=== PATIENT | female | born 1980 | race Caucasian/White ===

== ENCOUNTER 2020-03-23 08:50 | Emergency (ER) | payer OTHER, SELFPAY ==
[2020-03-23 08:53] VITALS: BP 132/84; PULSE 80; RESP 20; TEMP 36.3; O2SAT 97
--- NOTE | 2020-03-23 09:17 | ED.SKABFB ---
HPI - Skin/Abscess/Foreign Bdy General Chief complaint: Skin/Abscess/Foreign Body Stated complaint: infected burn sites? Time Seen by Provider: 03/23/20 09:17 Source: patient Mode of arrival: ambulatory Limitations: no limitations History of Present Illness HPI narrative: Patient is a 39-year-old female who presents for evaluation of abdominal wall june. Patient states that she burned the top of her abdominal wall skin tea spilled top Ramen onto it. This happened over 5 days ago. Patient reports that she initially had some blistering which is now resolved. Patient reports pain which is burning in nature overlying the lesions, she reports she thought she had some green discharge over 1 of the lesions yesterday. She has been applying Silvadene, and her primary care physician's office recently started her on Bactrim and azithromycin. Patient denies fever, chills, streaking erythema or linear pattern to the rash. No history of skin infection. Related Data Allergies Allergy/AdvReac Type Severity Reaction Status Date / Time metronidazole Allergy Severe Nausea and Verified 03/23/20 08:56 Vomiting prochlorperazine Allergy Severe Nervousness Verified 03/23/20 08:56 cephalexin Allergy Intermediate Rash Verified 03/23/20 08:56 [email or web address] Allergy Unknown Hallucinate Verified 03/23/20 08:56 Review of Systems Review of Systems: Narrative: CONSTITUTIONAL: Denies fever CARDIOVASCULAR: Denies chest pain RESPIRATORY: Denies cough or dyspnea. GASTROINTESTINAL: Denies abdominal pain SKIN: Burn lesions to abdomen MUSCULOSKELETAL: Denies back pain NEUROLOGIC: Denies headache PMFSH Past Medical History Medical History (Updated 03/23/20 @ 09:56 by Varsha Leiva MD) Anxiety Anxiety and depression Herpes labialis without complication Splenomegaly Social History Social History Smoking status: Current every day smoker Alcohol intake: current Substance use: never Substance use type: does not use Gender identity (if verbalized by the patient): Female Exam Narrative: Exam Narrative: GENERAL: Awake, alert, conversant HEAD: Normocephalic, atraumatic. EYES: PERRLA and EOMI. ENT: Nares clear, no rhinorrhea or epistaxis. Mucous membranes moist. NECK: Supple. CHEST: No respiratory distress, breathing even and non labored HEART: Regular rate, sinus rhythm ABDOMEN:Non distended, minimally tender over areas of healing burn, no streaking erythema, no warmth, no purulent discharge, no wound dehiscence. No eschar present. No malodorous discharge. Total body surface area less than 1% about a safest area june. Scattered burn lesions to the anterior abdomen, none are greater than 3 cm. EXTREMITIES: Normal range of motion. No edema. SKIN: Warm, dry, no rash. NEURO:No focal deficits. Alert and oriented x3 Course Vital Signs Vital signs: Vital Signs Temperature 36.3 C L 03/23/20 08:53 Pulse Rate 80 03/23/20 08:53 Respiratory Rate 20 03/23/20 08:53 Blood Pressure 132/84 03/23/20 08:53 Pulse Oximetry 97 03/23/20 08:53 Temperature 36.3 C L 03/23/20 08:53 Pulse Rate 80 03/23/20 08:53 Respiratory Rate 20 03/23/20 08:53 Blood Pressure 132/84 03/23/20 08:53 Pulse Oximetry 97 03/23/20 08:53 MDM - Skin/Abscess/Foreign Bdy MDM Narrative Medical decision making narrative: On exam, patient has mostly well-healing granulation tissue, there is some slight erythema at the borders of the burn markings on the abdomen. No streaking erythema, severe warmth or fluctuance. No evidence of abscess. No vesicles. Patient has been on Bactrim without much improvement, we can go ahead and discontinue that and expand to clindamycin. Clinically, I do not feel there is findings concerning for cellulitis that is severe at this point. No systemic symptoms of infectious process. Also, I feel a large portion of this is due to pain control for the patient, will try short-t
[2020-03-23 10:22] VITALS: BP 123/79; PULSE 58; RESP 20; O2SAT 99
== END 2020-03-23 10:24 | disposition home or self-care (01) ==
PROVIDERS: Emergency Provider Emergency Medicine; PCP Family Medicine
DX: T21.02XA Burn of unspecified degree of abdominal wall, initial encounter (principal); X10.1XXA Contact with hot food, initial encounter; F17.200 Nicotine dependence, unspecified, uncomplicated; T31.0 Burns involving less than 10% of body surface
CPT/HCPCS: 99283

== ENCOUNTER 2020-04-20 07:59 | Emergency (ER) | payer OTHER, SELFPAY ==
--- NOTE | ~2020-04-20 | XR_ITS ---
EXAMINATION: XR abdomen/kub 1V DATE: 04/20/2020 09:55 INDICATION: Right flank pain. Vomiting. TECHNIQUE: A supine view of the abdomen on 2 radiographs was obtained. COMPARISON: CT abdomen and pelvis 04/20/2020 FINDINGS: There are no dilated loops of bowel. There are phleboliths in the pelvis. Surgical clips in the right upper quadrant are likely from cholecystectomy. IMPRESSION: 1. No urolithiasis. Reviewed, dictated and finalized at location A. IMPRESSION: 1. No urolithiasis.
--- NOTE | ~2020-04-20 | CT_ITS ---
EXAMINATION: CT abdomen pelvis wo con DATE: 04/20/2020 09:48 INDICATION: Right flank pain. Vomiting. TECHNIQUE: Computed tomography (CT) of the abdomen and pelvis was performed without intravenous contr ast. Automated exposure control and iterative reconstruction technique were employed. The dose-length product was 1318.69 mGy-cm. COMPARISON: CT abdomen and pelvis 07/10/2018 FINDINGS: The visualized portions of the lung bases demonstrate mild atelectasis. No pleural effusion . The heart size is normal. No pericardial effusion. There is a small sliding hiatal hernia. The live r and spleen are normal. There are changes of cholecystectomy. The pancreas, adrenal glands, and kidn eys are normal. There is no urolithiasis. There are no dilated loops of bowel. The appendix is not vi sualized. There are no pathologically enlarged lymph nodes. There is no free intraperitoneal fluid. T here is mild thoracal lumbar spondylosis. IMPRESSION: 1. Small sliding hiatal hernia. Reviewed, dictated and finalized at location A.
[2020-04-20 08:08] VITALS: BP 149/107; PULSE 77; RESP 20; TEMP 36.1; O2SAT 99
[2020-04-20] MEDS: SODIUM CHLORIDE 0.9% IV 1,000 ML 999 ML IV CONT (08:30)
[2020-04-20] MEDS: ONDANSETRON INJ 4 MG/2 ML VIAL IV PUSH (08:32)
--- NOTE | 2020-04-20 08:38 | ED.BACK ---
HPI - Back Pain/Injury General Chief Complaint: Urogenital-Female Stated Complaint: vomiting, back pain Time Seen by Provider: 04/20/20 08:06 Source: patient Mode of arrival: ambulatory Limitations: no limitations History of Present Illness HPI Narrative: This patient is a 39 year old female with history of kidney stones who presents for evaluation of right flank pain. Patient developed sudden onset right flank pain this morning at 3 am. Her pain is radiating around to her right lower abdomen. She also has associated nausea and vomiting. She denies fever or chills. MD elicited complaint: back pain Pertinent past history: kidney stones Related Data Allergies Allergy/AdvReac Type Severity Reaction Status Date / Time metronidazole Allergy Severe Nausea and Verified 04/08/20 14:46 Vomiting prochlorperazine Allergy Severe Nervousness Verified 04/08/20 14:46 cephalexin Allergy Intermediate Rash Verified 04/08/20 14:46 [email or web address] Allergy Unknown Hallucinate Verified 04/08/20 14:46 Review of Systems Review of Systems: All systems reviewed & are unremarkable except as noted in HPI and below Constitutional: Constitutional: Denies chills and Denies fever(s) Gastrointestinal: Gastrointestinal: Reports abdominal pain, Reports nausea and Reports vomiting Musculoskeletal: Musculoskeletal: Reports back pain PMF Past Medical History Medical History (Updated 04/20/20 @ 12:27 by Rina Grace MD) Anxiety Anxiety and depression Herpes labialis without complication Splenomegaly Surgical History Surgical History (Updated 04/20/20 @ 08:40 by Rina Grace MD) Hx of appendectomy Social History Social History Smoking status: Current every day smoker Alcohol intake: current Substance use: never Substance use type: does not use Gender identity (if verbalized by the patient): Female Exam Const: General: alert Nutritional Appearance: obese Orientation/consciousness: patient oriented x3 Other: mild distress Eyes: Pupils: Equal, round and reactive pupils present EOM: EOMs intact bilaterally Neck: Neck: no lymphadenopathy Resp: Effort & Inspection: normal respiratory effort and no retractions Auscultation: clear to auscultation bilaterally Cardio: Rate: regular rate Rhythm: regular rhythm Heart sounds: no murmurs GI: GI Palp: Yes Soft to palpation, No Firmness to palpation present (GI), No Tenderness to palpation present (GI), No Guarding due to palpation present (GI), No Rigid due to palpation and No No hepatosplenomegaly present : General: Yes no CVA tenderness Neuro: General: patient oriented x3, moves all extremities and CN's II-XI intact bilaterally Psych: Mental Status: mental status grossly normal Course Reevaluation(s) Reevaluation #1: Patient reports pain has improved and she is ready for discharge home. Date: 04/20/20 Time: 12:24 Vital Signs Vital signs: Vital Signs Temperature 97.0 F L 04/20/20 08:08 Pulse Rate 77 04/20/20 08:08 Respiratory Rate 20 04/20/20 08:08 Blood Pressure 149/107 H 04/20/20 08:08 Pulse Oximetry 99 04/20/20 08:08 Temperature 97.0 F L 04/20/20 08:08 Pulse Rate 94 04/20/20 12:36 Respiratory Rate 17 04/20/20 12:36 Blood Pressure 132/82 04/20/20 12:36 Pulse Oximetry 97 04/20/20 12:36 MDM - Back Pain/Injury Lab Data Attestation: I reviewed the patient's lab results. Result diagrams: 04/20/20 08:27 04/20/20 08:27 Labs: Lab Results 04/20/20 04/20/20 04/20/20 Range/Units 08:26 08:27 08:27 WBC 5.3 (4.5-10.0) K/mm3 RBC 4.45 (4.2-5.4) M/mm3 Hgb 13.2 (12.0-15.0) g/dL Hct 39.3 (37.0-47.0) % MCV 88.3 (80-100) fl MCH 29.7 (26-34) pg MCHC 33.6 (32-36) g/dl RDW 13.0 (11.5-14.5) % Plt Count 288 (150-375) k/mm3 MPV 10.1 (7.4-10.4) fl Immature Gran % (Auto) 0.4 (0-0.5) % Neut %
[2020-04-20 08:47] LABS: Basophils Percent Auto 0.6 % (0.2-1.2); Eosinophils Absolute Auto 0.2 K/mm3 (0-0.3); Eosinophils Percent Auto 3.9 % (0-4.4); Hematocrit 39.3 % (37.0-47.0); Hemoglobin 13.2 g/dL (12.0-15.0); Immature Granulocyte Absolute 0.02 K/mm3 (0.00-0.031); Immature Granulocyte Percent A 0.4 % (0-0.5); Lymphocytes Absolute Auto 1.64 K/mm3 (0.9-3.2); Lymphocytes Percent Auto 30.8 % (18.3-44.2); Mean Corpuscular HGB Conc 33.6 g/dl (32-36); Mean Corpuscular Hemoglobin 29.7 pg (26-34); Mean Corpuscular Volume 88.3 fl (80-100); Mean Platelet Volume 10.1 fl (7.4-10.4); Monocytes Absolute Auto 0.2 K/mm3 (0.1-0.6); Monocytes Percent Auto 4.3 % (2.6-8.5); Neutrophils Absolute Auto 3.2 K/mm3 (1.3-6.7); Platelet Count Result 288 k/mm3 (150-375); Red Blood Count 4.45 M/mm3 (4.2-5.4); White Blood Count 5.3 K/mm3 (4.5-10.0)
[2020-04-20 08:51] LABS: Add Urine Microscopic? YES; Appearance Urine Clear (Clear); Bacteria Urine Trace /hpf; Bilirubin Urine Negative (Negative); Blood Urine 1+ (Negative); Color Urine Straw (Yellow); Glucose Urine UA Negative (Negative); Ketones Urine Negative (Negative); Leukocyte Esterase Ur 1+ LEU/UL (Negative); Mucus Urine Rare /lpf; Nitrate Urine Negative (Negative); Protein Urine Negative (Negative); Specific Grav Ur 1.014 (1.001-1.035); Squamous Epithelial Cell Urine Many /hpf (Few); Urobilinogen Urine Negative mg/dL (<2.0)
[2020-04-20 08:59] LABS: Alanine Aminotransferase 22 U/L (4-35); Albumin Level 4.2 g/dL (3.5-5.1); Alkaline Phosphatase 60 U/L (38-126); Anion Gap 9 mmol/L (8-16); Aspartate Amino Transferase 35 U/L (14-36); Bilirubin,Total 0.2 mg/dL (0.2-1.3); Blood Urea Nitrogen 14 mg/dL (7-17); Calcium 8.6 mg/dL (8.4-10.2); Carbon Dioxide 24 mmol/L (22-30); Chloride 105 mmol/L (98-107); Estimated CRCL calculation 114 ml/min; Estimated Glomerular Filt Rate > 60; Glucose 94 mg/dL (65-105); Potassium 4.7 mmol/L (3.4-5.0); Sodium 138 mmol/L (137-145)
[2020-04-20] MEDS: KETOROLAC 30 MG/ML VIAL (*BKC) IV PUSH (11:10)
[2020-04-20 11:14] VITALS: BP 102/70; PULSE 61; RESP 20; O2SAT 98
[2020-04-20 12:36] VITALS: BP 132/82; PULSE 94; RESP 17; O2SAT 97
== END 2020-04-20 12:39 | disposition home or self-care (01) ==
PROVIDERS: Emergency Provider General Practice; PCP Family Medicine
DX: N39.0 Urinary tract infection, site not specified (principal); F17.200 Nicotine dependence, unspecified, uncomplicated; K44.9 Diaphragmatic hernia without obstruction or gangrene; F41.9 Anxiety disorder, unspecified; F32.9 Major depressive disorder, single episode, unspecified
CPT/HCPCS: 36415; 74018; 74176; 80053; 81001; 85025; 87086; 96361; 96365; 96375; 99284; J0131; J1885; J2405; J7030

== ENCOUNTER 2020-04-28 17:16 | Emergency (ER) | payer OTHER, SELFPAY ==
[2020-04-28 17:18] VITALS: BP 157/94; PULSE 112; RESP 22; TEMP 37.1; O2SAT 100
--- NOTE | 2020-04-28 17:38 | ED.GENADULT ---
HPI - General Adult General Chief complaint: Neuro Symptoms/Deficit Stated complaint: my hands and feet are purple , shaking Time Seen by Provider: 04/28/20 17:32 Source: patient History of Present Illness HPI narrative: Patient is a 39 y/o female complaining of hand turning purple approximately 30-45 minutes. She states that the hand discoloration happened when she was trying to braid her hair. She believes that raising her hands may have aggravated her discoloration. She states that her hands are shaking. She denies any pain. She is able to move her arms without difficulty. She also states that her feet are turning purple. Related Data Allergies Allergy/AdvReac Type Severity Reaction Status Date / Time metronidazole Allergy Severe Nausea and Verified 04/28/20 17:21 Vomiting prochlorperazine Allergy Severe Nervousness Verified 04/28/20 17:21 cephalexin Allergy Intermediate Rash Verified 04/28/20 17:21 [email or web address] Allergy Unknown Hallucinate Verified 04/28/20 17:21 Review of Systems Constitutional: Constitutional: Denies chills, Denies fever(s), Denies headache(s) and Denies weakness Eyes: Eyes: Denies blurry vision ENT: Denies headache(s) and Denies neck pain Cardiovascular: Cardiovascular: Denies chest pain and Denies dyspnea Respiratory: Respiratory: Denies cough and Denies dyspnea Gastrointestinal: Gastrointestinal: Denies abdominal pain, Denies diarrhea, Denies nausea and Denies vomiting Genitourinary: Genitourinary: Denies hematuria and Denies dysuria Musculoskeletal: Musculoskeletal: Denies back pain and Denies neck pain Integumentary/Breasts: Skin/Breast: Reports other (skin discoloration) Neurologic: Denies headache(s) and Denies weakness PMFSH Past Medical History Medical History Anxiety Anxiety and depression Herpes labialis without complication Splenomegaly Surgical History Surgical History History of History of hemorrhoidectomy History of laparoscopic cholecystectomy History of renal stent History of tonsillectomy Hx of appendectomy Family History Family History Father Hypertension Grandparent Cerebrovascular accident Family history of pancreatic cancer Diabetes mellitus Family history of pancreatic disease Unknown Diabetes mellitus Social History Social History Smoking status: Current every day smoker Alcohol intake: current Substance use: never Substance use type: does not use Gender identity (if verbalized by the patient): Female Exam Const: General: no acute distress and well developed Orientation/consciousness: oriented to person, oriented to place, oriented to time and patient oriented x3 HENMT: Head: normocephalic Ears: external ears normal General nose exam: Normal external nose present Eyes: General: appearance normal, both eyes and all related structures Conjunctivae: conjunctivae normal Neck: Neck: normal visual inspection and full ROM Chest: Chest palpation & inspection: normal inspection of the chest and no tenderness Resp: Effort & Inspection: normal respiratory effort Auscultation: clear to auscultation bilaterally Cardio: Rate: tachycardic Rhythm: regular rhythm Peripheral pulses: Peripheral pulses 2+ throughout, radial pulses present and dorsalis pedis present GI: GI Palp: No abdominal tenderness and Yes Soft to palpation Skin: General skin exam: normal color and turgor normal Other: no purple discoloration of hands or feet Neuro: General: oriented to person, oriented to place, oriented to time and patient oriented x3 Cognition (Neuro): normal cognition Extrem: General: normal to inspection, full ROM and no pedal edema Psych: Appearance: grossly normal Mental Status: mental status grossly normal Affect: Anxious affe
--- NOTE | 2020-04-28 17:45 | ECG_ITS ---
Measurements Intervals [place] Rate: 83 P: 36 MN: 169 QRS: 1 QRSD: 86 T: 23 QT: 391 QTc: 461 Interpretive Statements SINUS RHYTHM BASELINE ARTIFACT- I, II, AVR, V1-V2 NORMAL ECG Electronically Signed On 04-29-2020 6:57:53 CDT by Mane Thomas D.O.
[2020-04-28 17:56] LABS: Basophils Percent Auto 0.3 % (0.2-1.2); Eosinophils Absolute Auto 0.1 K/mm3 (0-0.3); Eosinophils Percent Auto 0.6 % (0-4.4); Hemoglobin 14.3 g/dL (12.0-15.0); Immature Granulocyte Absolute 0.03 K/mm3 (0.00-0.031); Immature Granulocyte Percent A 0.3 % (0-0.5); Lymphocytes Absolute Auto 2.48 K/mm3 (0.9-3.2); Lymphocytes Percent Auto 28.8 % (18.3-44.2); Mean Corpuscular HGB Conc 33.3 g/dl (32-36); Mean Corpuscular Hemoglobin 29.7 pg (26-34); Mean Corpuscular Volume 89.4 fl (80-100); Monocytes Absolute Auto 0.5 K/mm3 (0.1-0.6); Neutrophils Absolute Auto 5.5 K/mm3 (1.3-6.7); Platelet Count Result 312 k/mm3 (150-375); Red Blood Count 4.81 M/mm3 (4.2-5.4); Red Cell Distribution Width 13.2 % (11.5-14.5); White Blood Count 8.6 K/mm3 (4.5-10.0)
[2020-04-28 18:09] LABS: Alanine Aminotransferase 36 U/L (4-35); Albumin Level 5.1 g/dL (3.5-5.1); Alkaline Phosphatase 86 U/L (38-126); Anion Gap 10 mmol/L (8-16); Aspartate Amino Transferase 44 U/L (14-36); Bilirubin,Total 0.5 mg/dL (0.2-1.3); Blood Urea Nitrogen 21 mg/dL (7-17); CRP 0.7 mg/dL (<1.0); Calcium 9.5 mg/dL (8.4-10.2); Carbon Dioxide 28 mmol/L (22-30); Chloride 101 mmol/L (98-107); Estimated CRCL calculation 84 ml/min; Estimated Glomerular Filt Rate > 60; Glucose 104 mg/dL (65-105); Potassium 3.6 mmol/L (3.4-5.0); Sodium 139 mmol/L (137-145)
[2020-04-28 18:23] LABS: Add Urine Microscopic? YES; Appearance Urine Cloudy (Clear); Bacteria Urine Trace /hpf; Bilirubin Urine Negative (Negative); Blood Urine Negative (Negative); Color Urine Yellow (Yellow); Glucose Urine UA Negative (Negative); Ketones Urine Trace mg/dL (Negative); Leukocyte Esterase Ur 3+ LEU/UL (Negative); Mucus Urine Moderate /lpf; Nitrate Urine Negative (Negative); Protein Urine 1+ mg/dL (Negative); Renal Epithelial Cells Urine Rare /hpf (None Seen); Squamous Epithelial Cell Urine Many /hpf (Few); Urobilinogen Urine Negative mg/dL (<2.0); WBC Urine 21-30 /hpf
[2020-04-28 18:24] LABS: Specific Grav Ur 1.032 (1.001-1.035)
[2020-04-28 18:25] LABS: Erythrocyte Sedimentation Rate 12 mm/hr (0-20)
[2020-04-28 19:36] VITALS: BP 159/94; PULSE 89; RESP 20; O2SAT 99
[2020-04-28 20:13] VITALS: BP 159/94; PULSE 80; RESP 20; O2SAT 99
== END 2020-04-28 20:14 | disposition home or self-care (01) ==
PROVIDERS: Emergency Provider Emergency Medicine; PCP Family Medicine
DX: R23.8 Other skin changes (principal); R25.1 Tremor, unspecified; I10 Essential (primary) hypertension; F41.9 Anxiety disorder, unspecified; F32.9 Major depressive disorder, single episode, unspecified; R16.1 Splenomegaly, not elsewhere classified
CPT/HCPCS: 36415; 80053; 81001; 85025; 85652; 86140; 87077; 87086; 87088; 87186; 93005; 99283

== ENCOUNTER 2020-05-01 09:38 | Emergency (ER) | payer OTHER, SELFPAY ==
--- NOTE | ~2020-05-01 | US_ITS ---
EXAMINATION: US pelvic complete w TV DATE: 05/01/2020 13:38 INDICATION: Right lower abdominal pain TECHNIQUE: Multiple transabdominal and endovaginal sonographic images of the pelvis were obtained. COMPARISON: None. FINDINGS: The uterus and bilateral ovaries are not visualized and reportedly surgically absent. Bladder is norm al. No free fluid in the pelvis. No abnormal mass or fluid collections identified. IMPRESSION: 1. Unremarkable pelvic ultrasound post prior hysterectomy and oophorectomy. Reviewed, dictated and finalized at location A.
--- NOTE | 2020-05-01 10:50 | ED.ABDPAIN ---
HPI - Abdominal Pain General Chief Complaint: Abdominal Pain Stated Complaint: UTI, Right Flank Pain Time Seen by Provider: 05/01/20 10:06 Source: patient Mode of arrival: ambulatory Limitations: no limitations History of Present Illness HPI narrative: This patient is a 39 year old female who presents for evaluation of right lower abdominal pain. She reports she has been having intermittent right lower abdominal pain for 2 weeks. Last night her pain has become constant. She states she was evaluated in ER [address] with [address] scan. She was started on bactrim for possible UTI. She started she she was placed on antibiotics again 3 days ago. She reports she has to strain to urinate but she develop dysuria or hematuria. MD elicited complaint: abdominal pain Location: RLQ Related Data Allergies Allergy/AdvReac Type Severity Reaction Status Date / Time metronidazole Allergy Severe Nausea and Verified 05/01/20 11:06 Vomiting prochlorperazine Allergy Severe Nervousness Verified 05/01/20 11:06 cephalexin Allergy Intermediate Rash Verified 05/01/20 11:06 [email or web address] Allergy Unknown Hallucinate Verified 05/01/20 11:06 Review of Systems Review of Systems: All systems reviewed & are unremarkable except as noted in HPI and below Constitutional: Constitutional: Denies chills and Denies fever(s) PMFSH Social History Social History Smoking status: Current every day smoker Alcohol intake: current Substance use: never Substance use type: does not use Gender identity (if verbalized by the patient): Female Exam Narrative: Exam Narrative: GENERAL: Well-appearing, well-nourished, and in no acute distress. HEAD: Normocephalic, atraumatic EYES: PERRLA and EOMI, conjunctiva clear without discharge NECK: Supple, without lymphadenopathy or mass RESPIRATORY: No respiratory distress, Airway patent, Respirations non-labored, Clear to auscultation without rales, rhonchi or wheeze HEART: Regular rate and rhythm. No murmur heard. Normal peripheral pulses. ABDOMEN: Soft, TTP right lower abdomen with barely touching skin., nondistended, normal active bowel sounds. No masses. No rebound or guarding, No organomegaly. EXTREMITIES: No edema, normal strength with full range of motion. SKIN: Warm, dry, normal color without rash NEURO: Alert and oriented x3. CN 2-12 grossly intact. No focal deficits. PSYCH: Normal mood and affect. Course Consultations Consultation #1: I discussed case with Dr. Long and he recommended started elavil 25 mg bid for neuropathy pain. I reviewed labs and she is on medication that its contraindicated to start right now. She will follow up with PCP. She reports appendix is out and labs are normal so I do not believe ct needed. she was having pain with rubbing skin . Date: 05/01/20 Time: 15:39 Vital Signs Vital signs: Vital Signs Temperature 97.7 F 05/01/20 11:00 Pulse Rate 103 H 05/01/20 11:00 Respiratory Rate 18 05/01/20 11:00 Blood Pressure 149/108 H 05/01/20 11:00 Pulse Oximetry 100 05/01/20 11:00 Temperature 97.7 F 05/01/20 11:00 Pulse Rate 97 05/01/20 13:45 Respiratory Rate 18 05/01/20 13:45 Blood Pressure 136/96 H 05/01/20 13:45 Pulse Oximetry 100 05/01/20 13:45 MDM - Abdominal Pain Lab Data Attestation: I reviewed the patient's lab results. Result diagrams: 05/01/20 11:13 05/01/20 14:26 Labs: Lab Results 05/01/20 05/01/20 05/01/20 Range/Units 11:13 11:13 11:13 WBC 5.7 (4.5-10.0) K/mm3 RBC 4.12 L (4.2-5.4) M/mm3 Hgb 12.2 (12.0-15.0) g/dL Hct 37.3 (37.0-47.0) % MCV 90.5 (80-100) fl MCH 29.6 (26-34) pg MCHC 32.7 (32-36) g/dl RDW 13.2 (11.5-14.5) % Plt Count 254 (150-375) k/mm3 MPV 10.3 (7.4-10.4) fl Immature Gran % (Auto) 0.5 (0-0.5) % Neut % (Auto) 58.0 (45.5-73.1) % Lymph % (Auto) 32.8 (18.3-44
[2020-05-01] MEDS: ONDANSETRON INJ 4 MG/2 ML VIAL IV PUSH (10:57)
[2020-05-01 11:00] VITALS: BP 149/108; PULSE 103; RESP 18; TEMP 36.5; O2SAT 100
[2020-05-01 11:33] LABS: Basophils Percent Auto 0.4 % (0.2-1.2); Eosinophils Absolute Auto 0.2 K/mm3 (0-0.3); Eosinophils Percent Auto 2.8 % (0-4.4); Hematocrit 37.3 % (37.0-47.0); Hemoglobin 12.2 g/dL (12.0-15.0); Immature Granulocyte Absolute 0.03 K/mm3 (0.00-0.031); Immature Granulocyte Percent A 0.5 % (0-0.5); Lymphocytes Absolute Auto 1.86 K/mm3 (0.9-3.2); Lymphocytes Percent Auto 32.8 % (18.3-44.2); Mean Corpuscular HGB Conc 32.7 g/dl (32-36); Mean Corpuscular Hemoglobin 29.6 pg (26-34); Mean Corpuscular Volume 90.5 fl (80-100); Mean Platelet Volume 10.3 fl (7.4-10.4); Monocytes Absolute Auto 0.3 K/mm3 (0.1-0.6); Monocytes Percent Auto 5.5 % (2.6-8.5); Neutrophils Absolute Auto 3.3 K/mm3 (1.3-6.7); Platelet Count Result 254 k/mm3 (150-375); Red Blood Count 4.12 M/mm3 (4.2-5.4); Red Cell Distribution Width 13.2 % (11.5-14.5); White Blood Count 5.7 K/mm3 (4.5-10.0)
[2020-05-01 11:37] LABS: Add Urine Microscopic? YES; Appearance Urine Clear (Clear); Bilirubin Urine Negative (Negative); Blood Urine Negative (Negative); Color Urine Straw (Yellow); Glucose Urine UA Negative (Negative); Ketones Urine Negative (Negative); Leukocyte Esterase Ur Trace LEU/UL (Negative); Mucus Urine Rare /lpf; Nitrate Urine Negative (Negative); Protein Urine Negative (Negative); RBC Urine 0-2 /hpf (0-2); Squamous Epithelial Cell Urine Occasional /hpf (Few); Urobilinogen Urine Negative mg/dL (<2.0); WBC Urine 0-3 /hpf
[2020-05-01 11:45] LABS: Lactic Acid Reflex 1.4 mmol/L (0.7-2.1)
[2020-05-01] MEDS: NITROFURANTOIN MONOHYD MACROCR 100 MG CAP PO (11:49)
--- NOTE | 2020-05-01 12:15 | PC.NURSE ---
Pts lab work was rejected by lab. technical delivery manager tried to redraw with no luck. Lab was called to come and draw.
[2020-05-01] MEDS: KETOROLAC 30 MG/ML VIAL (*BKC) IV PUSH (13:15)
[2020-05-01 13:45] VITALS: BP 136/96; PULSE 97; RESP 18; O2SAT 100
[2020-05-01 14:50] LABS: Potassium 3.9 mmol/L (3.4-5.0)
[2020-05-01 14:56] LABS: Alanine Aminotransferase 24 U/L (4-35); Alkaline Phosphatase 63 U/L (38-126); Anion Gap 6 mmol/L (8-16); Aspartate Amino Transferase 29 U/L (14-36); Bilirubin,Total 0.4 mg/dL (0.2-1.3); Blood Urea Nitrogen 14 mg/dL (7-17); Calcium 8.8 mg/dL (8.4-10.2); Carbon Dioxide 27 mmol/L (22-30); Chloride 104 mmol/L (98-107); Estimated CRCL calculation 117 ml/min; Estimated Glomerular Filt Rate > 60; Glucose 87 mg/dL (65-105); Lipase 71 U/L (23-300); Sodium 137 mmol/L (137-145)
== END 2020-05-01 16:02 | disposition home or self-care (01) ==
PROVIDERS: Emergency Provider General Practice; PCP Family Medicine
DX: N39.0 Urinary tract infection, site not specified (principal); R10.31 Right lower quadrant pain; F17.210 Nicotine dependence, cigarettes, uncomplicated
CPT/HCPCS: 36415; 76830; 76856; 80053; 81001; 83605; 83690; 85025; 96374; 96375; 99284; A9270; J1170; J1885; J2405

== ENCOUNTER 2020-05-02 08:33 | Outpatient (CLI) | payer OTHER, SELFPAY ==
--- NOTE | ~2020-05-02 | XR_ITS ---
EXAMINATION: XR UGIAC w barium swallow DATE: 05/02/2020 09:21 INDICATION: Vomiting. Unspecified small hiatal hernia. TECHNIQUE: The patient drank thick barium, gas-producing crystals, and thin barium. Fluoroscopic spot radiographs of the hypopharynx, esophagus, stomach and proximal small bowel were obtained. Fluorosco py exposure time was 2.3 minutes. Total of 1212 images were recorded. COMPARISON: None. FINDINGS: The pharynx is symmetric and without evidence of mass lesion or mucosal irregularity. Prominent crico pharyngeus muscle. The esophagus is normal without mass or stricture. Esophageal motility is normal. Small sliding-type hiatal hernia with gastroesophageal junction approximately 3 cm above the level of the diaphragm. There are couple episodes of spontaneous gastroesophageal reflux of a moderate amount of contrast extending at least to the mid esophagus which was unable to be repeated with provocative maneuvers. The stomach and proximal small bowel are normal. There appeared to be a significant amoun t of residual ingested material within the lumen of the stomach although patient reported not having eaten for at least 10 hours prior. IMPRESSION: 1. Small sliding-type hiatal hernia with gastroesophageal reflux. 2. Prominent cricopharyngeus muscle. 3. Residual debris within the stomach at least 10 hours post most recent reported ingestion suggestiv e of gastroparesis. Reviewed, dictated and finalized at location A. IMPRESSION: 1. Small sliding-type hiatal hernia with gastroesophageal reflux. 2. Prominent cricopharyngeus muscle. 3. Residual debris within the stomach at least 10 hours post most recent report ed ingestion suggestive of gastroparesis.
[2020-05-02 10:14] LABS: Basophils Percent Auto 0.4 % (0.2-1.2); Eosinophils Absolute Auto 0.2 K/mm3 (0-0.3); Eosinophils Percent Auto 3.8 % (0-4.4); Hematocrit 36.6 % (37.0-47.0); Immature Granulocyte Absolute 0.01 K/mm3 (0.00-0.031); Immature Granulocyte Percent A 0.2 % (0-0.5); Lymphocytes Absolute Auto 2.01 K/mm3 (0.9-3.2); Lymphocytes Percent Auto 37.8 % (18.3-44.2); Mean Corpuscular HGB Conc 32.8 g/dl (32-36); Mean Corpuscular Hemoglobin 29.9 pg (26-34); Mean Platelet Volume 9.6 fl (7.4-10.4); Monocytes Absolute Auto 0.3 K/mm3 (0.1-0.6); Monocytes Percent Auto 5.1 % (2.6-8.5); Neutrophils Absolute Auto 2.8 K/mm3 (1.3-6.7); Neutrophils Percent Auto 52.7 % (45.5-73.1); Platelet Count Result 230 k/mm3 (150-375); Red Blood Count 4.02 M/mm3 (4.2-5.4); Red Cell Distribution Width 13.2 % (11.5-14.5); White Blood Count 5.3 K/mm3 (4.5-10.0)
[2020-05-02 10:27] LABS: Alanine Aminotransferase 21 U/L (4-35); Albumin Level 4.1 g/dL (3.5-5.1); Alkaline Phosphatase 65 U/L (38-126); Anion Gap 6 mmol/L (8-16); Aspartate Amino Transferase 29 U/L (14-36); Bilirubin,Total 0.2 mg/dL (0.2-1.3); Blood Urea Nitrogen 19 mg/dL (7-17); Calcium 8.5 mg/dL (8.4-10.2); Carbon Dioxide 28 mmol/L (22-30); Chloride 104 mmol/L (98-107); Estimated Glomerular Filt Rate > 60; Glucose 102 mg/dL (65-105); Potassium 4.1 mmol/L (3.4-5.0); Sodium 138 mmol/L (137-145)
[2020-05-02 11:39] LABS: Free T4 Free Thyroxine 0.84 ng/mL (0.78-2.19)
== END 2020-05-02 08:34 | disposition home or self-care (01) ==
PROVIDERS: Nurse Practitioner Family; PCP Family Medicine; Visit Provider Surgery
DX: R74.8 Abnormal levels of other serum enzymes (principal); R11.10 Vomiting, unspecified; K44.9 Diaphragmatic hernia without obstruction or gangrene; N39.0 Urinary tract infection, site not specified; R53.83 Other fatigue; R00.0 Tachycardia, unspecified; R61 Generalized hyperhidrosis
CPT/HCPCS: 36415; 74246; 80053; 82607; 84439; 84443; 85025

== ENCOUNTER 2020-05-15 01:35 | Outpatient (CLI) | payer OTHER, SELFPAY ==
[2020-05-15 19:20] LABS: SARS-CoV-2 RNA PCR Negative
== END 2020-05-15 01:36 | disposition home or self-care (01) ==
LOC: ANHCOVIDDT 01:35
PROVIDERS: PCP Family Medicine; Visit Provider Internal Medicine Gastroenterology
DX: Z01.812 Encounter for preprocedural laboratory examination (principal); Z20.828 Contact with and (suspected) exposure to other viral communicable diseases
CPT/HCPCS: 87635; C9803; U0003

== ENCOUNTER 2020-05-17 01:31 | Day surgery (SDC) | payer OTHER, SELFPAY ==
[2020-05-10 10:11] VITALS: BMI 42.3
[2020-05-17 06:35] VITALS: BP 128/75; PULSE 79; RESP 21; TEMP 36.5; O2SAT 97; BMI 42.6
[2020-05-17] MEDS: LACTATED RINGERS 1,000 ML 150 ML IV CONT (06:50)
--- NOTE | 2020-05-17 07:02 | WPDANESEPP ---
Anes - Eval Pre Procedure Procedure: Operation Date: 05/17/20 07:30 Proposed Procedures p Esophagogastroduodenoscopy - Maurice Hernandez MD Date/Time: 05/17/20 07:02 Pre Op Diagnosis: Abdominal Pain Patient Data Age: 40 Gender: F Height: 1.63 m Weight: 112.7 kg Last Vital Signs Temp 36.5 C 05/17/20 06:35 Pulse 79 05/17/20 06:35 Resp 21 H 05/17/20 06:35 BP 128/75 05/17/20 06:35 Pulse Ox 97 05/17/20 06:35 Allergies Allergy/AdvReac Type Severity Reaction Status Date / Time metronidazole Allergy Severe Nausea and Verified 05/17/20 06:28 Vomiting prochlorperazine Allergy Severe Nervousness Verified 05/17/20 06:28 cephalexin Allergy Intermediate Rash Verified 05/17/20 06:28 [email or web address] Allergy Unknown Hallucinate Verified 05/17/20 06:28 Home Medications Medication Instructions Recorded Confirmed Type bupropion HCl 150 mg tablet,12 hr 150 mg PO BID #60 tablet 11/13/19 05/17/20 Rx sustained-release buspirone 7.5 mg tablet 7.5 mg PO BID #60 tablet 11/13/19 05/17/20 Rx hydroxyzine pamoate 50 mg capsule 50 mg PO TID PRN #90 cap 04/12/20 05/17/20 Rx ondansetron HCl [Zofran] 8 mg PO Q8H PRN #14 tablet 04/20/20 05/17/20 Rx duloxetine 60 mg capsule,delayed 60 mg PO DAILY #30 cap 04/22/20 05/17/20 Rx release sprinkle omeprazole 20 mg PO DAILY 05/10/20 05/17/20 History propranolol 40 mg PO Q12H PRN 05/10/20 05/17/20 History Patient hx anesthesia problems: none Family hx anesthesia problems: none PMFSH Social History Social History Smoking packs per day: 0.5 Smoking cigarettes per day: 10.0 Years smoked: 8 Smoking pack-years: 4.00 Smoking status: Current every day smoker Tobacco type: cigarettes Alcohol intake: current Substance use: never Substance use type: does not use Living arrangements: alone Gender identity (if verbalized by the patient): Female Spiritual care concerns: No Exam Day of Procedure 05/17/20 07:02
--- NOTE | 2020-05-17 07:08 | WPDANESEPPF ---
Anes - Initial Pre Proc Eval Procedure: Operation Date: 05/17/20 07:30 Proposed Procedures p Esophagogastroduodenoscopy - Maurice Hernandez MD Date/Time: 05/17/20 07:08 Surgeon: Maurice Hernandez MD Pre Op Diagnosis: Abdominal Pain Patient Data Age: 40 Gender: F Height: 1.63 m Weight: 112.7 kg Last Vital Signs Temp 36.5 C 05/17/20 06:35 Pulse 79 05/17/20 06:35 Resp 21 H 05/17/20 06:35 BP 128/75 05/17/20 06:35 Pulse Ox 97 05/17/20 06:35 Allergies Allergy/AdvReac Type Severity Reaction Status Date / Time metronidazole Allergy Severe Nausea and Verified 05/17/20 06:28 Vomiting prochlorperazine Allergy Severe Nervousness Verified 05/17/20 06:28 cephalexin Allergy Intermediate Rash Verified 05/17/20 06:28 zolpidem Allergy Unknown Hallucinate Verified 05/17/20 06:28 Home Medications Medication Instructions Recorded Confirmed Type bupropion HCl 150 mg tablet,12 hr 150 mg PO BID #60 tablet 11/13/19 05/17/20 Rx sustained-release buspirone 7.5 mg tablet 7.5 mg PO BID #60 tablet 11/13/19 05/17/20 Rx hydroxyzine pamoate 50 mg capsule 50 mg PO TID PRN #90 cap 04/12/20 05/17/20 Rx ondansetron HCl [Zofran] 8 mg PO Q8H PRN #14 tablet 04/20/20 05/17/20 Rx duloxetine 60 mg capsule,delayed 60 mg PO DAILY #30 cap 04/22/20 05/17/20 Rx release sprinkle omeprazole 20 mg PO DAILY 05/10/20 05/17/20 History propranolol 40 mg PO Q12H PRN 05/10/20 05/17/20 History Patient hx anesthesia problems: none Family hx anesthesia problems: none PMFSH Past Medical History Medical History Abdominal pain Anxiety Anxiety and depression Colon cancer screening GERD (gastroesophageal reflux disease) Herpes labialis without complication Nausea and vomiting in adult Splenomegaly Surgical History Surgical History History of History of hemorrhoidectomy History of laparoscopic cholecystectomy History of renal stent History of tonsillectomy Hx of appendectomy Family History Family History Father Hypertension Grandparent Cerebrovascular accident Family history of pancreatic cancer Diabetes mellitus Family history of pancreatic disease Unknown Diabetes mellitus Social History Social History Smoking packs per day: 0.5 Smoking cigarettes per day: 10.0 Years smoked: 8 Smoking pack-years: 4.00 Smoking status: Current every day smoker Tobacco type: cigarettes Alcohol intake: current Substance use: never Substance use type: does not use Living arrangements: alone Gender identity (if verbalized by the patient): Female Spiritual care concerns: No Anes - Eval Final PreProcedure Day of Procedure 05/17/20 07:08 Patient weight: morbidly obese Heart: regular rate and rhythm Lungs: clear to auscultation and normal air movement Airway: Mallampati scale class II Neurological: alert and oriented Last oral intake: >/= 8 hours ASA classification: III Emergent: no Anesthetic plan: proceed Anesthesia type and monitoring: general GIVS Informed Consent: The patient's anesthetic plan and its attendant risks and benefits were discussed with the patient/family/POA. Questions were solicited and answers provided to the satisfaction of the patient/family/POA.
--- NOTE | 2020-05-17 07:17 | WPDHPUPDATE1 ---
History and Physical Update Update Date/Time: 05/17/20 07:17 History and Physical has been reviewed, including an updated exam of the patient. There are NO changes in the patient's condition. Risks, benefits, and alternatives have been discussed and questions answered. Patient agrees to proceed with procedure.
[2020-05-17] MEDS: BENZOCAINE (*SP) 60 ML SPRAY CAN (HURRICAINE) 1 SPRAY MUCOUS MEM (07:20)
[2020-05-17 07:30] VITALS: BP 115/76; PULSE 70; RESP 25; O2SAT 97
[2020-05-17 07:40] VITALS: BP 136/60; PULSE 68; RESP 18; O2SAT 97
[2020-05-17 07:50] VITALS: BP 110/60; PULSE 70; RESP 18; O2SAT 97
== END 2020-05-17 08:10 | disposition home or self-care (01) ==
PROVIDERS: PCP Family Medicine; Visit Provider Internal Medicine Gastroenterology
PROC: 0DJ08ZZ Inspection of Upper Intestinal Tract, Via Natural or Artificial Opening Endoscopic (ICD-10-PCS; CPT 43235; principal; 2020-05-17 07:30)
DX: K21.0 Gastro-esophageal reflux disease with esophagitis (principal); K44.9 Diaphragmatic hernia without obstruction or gangrene; K29.50 Unspecified chronic gastritis without bleeding; K22.10 Ulcer of esophagus without bleeding; F17.210 Nicotine dependence, cigarettes, uncomplicated
CPT/HCPCS: 43239; 87635; 88305; C9803; J2704; J7120; U0003

== ENCOUNTER 2020-05-30 12:31 | Outpatient (CLI) | payer OTHER, SELFPAY ==
--- NOTE | ~2020-05-30 | XR_ITS ---
XR foot LT 2V 05/30/2020 13:04 INDICATION: Left foot pain PROCEDURE: 2 views left foot COMPARISON: No prior studies for comparison. FINDINGS: Fracture, dislocation or subluxation is not identified. Lisfranc joint intact. There is a d egenerative calcaneal enthesophyte. There are mild degenerative changes of the midfoot. The soft tiss ues appear within normal limits. No foreign bodies are identified. IMPRESSION: 1: NO ACUTE BONE OR JOINT ABNORMALITY IDENTIFIED. Reviewed, dictated and finalized at location A.
== END 2020-05-30 12:32 | disposition home or self-care (01) ==
LOC: ANHIMG 12:39
PROVIDERS: PCP Family Medicine; Visit Provider Nurse Practitioner Family
DX: M79.672 Pain in left foot (principal)
CPT/HCPCS: 73620

== ENCOUNTER 2020-06-10 16:40 | Emergency (ER) | payer OTHER, SELFPAY ==
--- NOTE | ~2020-06-10 | XR_ITS ---
EXAMINATION: XR foot LT min 3V DATE: 06/10/2020 18:02 INDICATION: Increasing left foot pain post recent surgery TECHNIQUE: Dorsoplantar, two oblique and lateral views of the left foot were obtained. COMPARISON: 05/30/2020 FINDINGS: Bone alignment is normal. No fracture. Joint spaces are normal. Moderate-sized plantar calcaneal spur . No cortical erosions or periosteal reaction. No left ankle joint effusion. Persistent soft tissue s welling over the dorsum of the midfoot. IMPRESSION: 1. No acute osseous abnormality. Reviewed, dictated and finalized at location A.
[2020-06-10 16:44] VITALS: BP 133/78; PULSE 103; RESP 18; TEMP 36.6; O2SAT 99
--- NOTE | 2020-06-10 17:28 | ED.LOWEXIN ---
HPI - Extremity Injury (Lower) General Chief Complaint: Extremity Injury, Lower Stated Complaint: pain s/p foot surgery Time Seen by Provider: 06/10/20 17:17 Source: patient Mode of arrival: ambulatory Limitations: no limitations History of Present Illness HPI Narrative: This is a 40 year old female that presents to the ER for increasing left foot pain after surgery 4 days ago. Reports she had a bone spur removed by a doctor at [facility]. Reports since Wednesday she has had increasing pain in the foot. She has been taking her prescribed pain medication with little relief. Denies fever, or erythema. Related Data Allergies Allergy/AdvReac Type Severity Reaction Status Date / Time metronidazole Allergy Severe Nausea and Verified 06/10/20 17:32 Vomiting prochlorperazine Allergy Severe Nervousness Verified 06/10/20 17:32 cephalexin Allergy Intermediate Rash Verified 06/10/20 17:32 zolpidem Allergy Unknown Hallucinate Verified 06/10/20 17:32 Review of Systems Review of Systems: Narrative: CONSTITUTIONAL: Denies fever SKIN: Denies redness MUSCULOSKELETAL: Reports joint pain, and myalgia. NEUROLOGIC: Denies numbness, or weakness. All systems reviewed & are unremarkable except as noted in HPI and below PMFSH Social History Social History Smoking packs per day: 0.5 Smoking cigarettes per day: 10.0 Years smoked: 8 Smoking pack-years: 4.00 Smoking status: Current every day smoker Tobacco type: cigarettes Alcohol intake: current Substance use: never Substance use type: does not use Gender identity (if verbalized by the patient): Female Spiritual care concerns: No Exam Narrative: Exam Narrative: GENERAL: Well-appearing, well-nourished, and in no acute distress. HEAD: Normocephalic, atraumatic. EYES: EOMI. EXTREMITIES: Normal range of motion. Mild edema and bruising surrounding surgical site to the dorsal surface of the left foot. Incision is clean, dry and intact without erythema or abnormal drainage. Normal DP pulses. Normal sensation SKIN: Warm, dry, no rash. NEURO: No focal deficits. Alert and oriented x3. PSYCH: Normal mood and affect Course Consultations Consultation #1: Spoke with Dr. Agee about patient and work-up. Will change her pain medication and add on a Medrol Dosepak. Date: 06/10/20 Time: 19:25 Vital Signs Vital signs: Vital Signs Temperature 97.9 F 06/10/20 16:44 Pulse Rate 103 H 06/10/20 16:44 Respiratory Rate 18 06/10/20 16:44 Blood Pressure 133/78 06/10/20 16:44 Pulse Oximetry 99 06/10/20 16:44 Temperature 97.9 F 06/10/20 16:44 Pulse Rate 72 06/10/20 19:02 Respiratory Rate 16 06/10/20 19:02 Blood Pressure 132/88 06/10/20 19:02 Pulse Oximetry 99 06/10/20 19:02 MDM - Extremity Injury (Lower) MDM Narrative Medical decision making narrative: Patient presents to the emergency department for postop pain. Recently had a bone spur removed at [facility] by Dr. Dalton Agee. Incision is clean, dry and intact. No signs of infection on exam. Pain is right around incision site, no pain further up into the calf or leg, no abnormal swelling or erythema noted to suspect DVT. CBC is without leukocytosis. ESR is normal. CRP very mildly elevated 1.4. Left foot x-rays without acute findings. Spoke with Dr. Agee about patient and work-up. Will change her pain medication and add on a Medrol Dosepak. Patient is to follow-up in clinic. She was given warnings to return to the ER Lab Data Attestation: I reviewed the patient's lab results. Result diagrams: 06/10/20 17:54 06/10/20 17:54 Labs: Lab Results 06/10/20 06/10/20 Range/Units 17:54 17:54 WBC 7.7 (4.5-10.0) K/mm3 RBC 4.99 (4.2-5.4) M/mm3 Hgb 14.6 (12.0-15.0) g/dL Hct 45.3 (37.0-47.0) % MCV 90.8 (80-100) fl MCH 29.3 (26-34) pg MCHC 32.2 (32-36) g
[2020-06-10] MEDS: ONDANSETRON INJ 4 MG/2 ML VIAL IV PUSH (17:48)
[2020-06-10] MEDS: KETOROLAC 30 MG/ML VIAL (*BKC) IV PUSH (17:49)
[2020-06-10] MEDS: MORPHINE SULFATE (*CRX) 4 MG/ML INJ IV PUSH (17:49)
[2020-06-10 17:59] LABS: Basophils Percent Auto 0.3 % (0.2-1.2); Eosinophils Absolute Auto 0.2 K/mm3 (0-0.3); Eosinophils Percent Auto 2.9 % (0-4.4); Hematocrit 45.3 % (37.0-47.0); Hemoglobin 14.6 g/dL (12.0-15.0); Immature Granulocyte Absolute 0.01 K/mm3 (0.00-0.031); Immature Granulocyte Percent A 0.1 % (0-0.5); Lymphocytes Absolute Auto 2.55 K/mm3 (0.9-3.2); Lymphocytes Percent Auto 33.3 % (18.3-44.2); Mean Corpuscular HGB Conc 32.2 g/dl (32-36); Mean Corpuscular Hemoglobin 29.3 pg (26-34); Mean Corpuscular Volume 90.8 fl (80-100); Mean Platelet Volume 10.2 fl (7.4-10.4); Monocytes Absolute Auto 0.6 K/mm3 (0.1-0.6); Monocytes Percent Auto 7.8 % (2.6-8.5); Neutrophils Absolute Auto 4.3 K/mm3 (1.3-6.7); Neutrophils Percent Auto 55.6 % (45.5-73.1); Platelet Count Result 304 k/mm3 (150-375); Red Blood Count 4.99 M/mm3 (4.2-5.4); Red Cell Distribution Width 12.6 % (11.5-14.5); White Blood Count 7.7 K/mm3 (4.5-10.0)
[2020-06-10 18:15] LABS: Anion Gap 8 mmol/L (8-16); Blood Urea Nitrogen 20 mg/dL (7-17); CRP 1.4 mg/dL (<1.0); Calcium 9.5 mg/dL (8.4-10.2); Carbon Dioxide 29 mmol/L (22-30); Chloride 103 mmol/L (98-107); Estimated CRCL calculation 102 ml/min; Estimated Glomerular Filt Rate > 60; Glucose 128 mg/dL (65-105); Sodium 140 mmol/L (137-145)
[2020-06-10 18:24] LABS: Erythrocyte Sedimentation Rate 8 mm/hr (0-20)
[2020-06-10 19:02] VITALS: BP 132/88; PULSE 72; RESP 16; O2SAT 99
--- NOTE | 2020-06-10 19:07 | PC.NURSE ---
Assumed care of pt at this time. report from Yamileth, RN
== END 2020-06-10 20:00 | disposition home or self-care (01) ==
PROVIDERS: Physician Assistant; Emergency Provider Emergency Medicine; PCP Family Medicine
DX: M79.672 Pain in left foot (principal); F17.210 Nicotine dependence, cigarettes, uncomplicated; G89.18 Other acute postprocedural pain; Z98.890 Other specified postprocedural states
CPT/HCPCS: 36415; 73630; 80048; 85025; 85652; 86140; 96374; 96375; 99284; J1885; J2270; J2405

== ENCOUNTER 2020-12-18 10:42 | Emergency (ER) | payer OTHER, SELFPAY ==
--- NOTE | ~2020-12-18 | XR_ITS ---
EXAMINATION: XR chest 1V portable INDICATION: Dizziness TECHNIQUE: Portable AP chest at 1122 hours COMPARISON: 01/20/2019 FINDINGS: The lungs are free of acute opacities. There is no pleural effusion or pneumothorax. The ca rdiomediastinal silhouette is normal. The visualized osseous structures are unremarkable. IMPRESSION: 1. No acute cardiopulmonary abnormality. Reviewed, dictated and finalized at location B.
--- NOTE | ~2020-12-18 | CT_ITS ---
EXAMINATION: CT brain wo con INDICATION: Dizziness COMPARISON: 07/26/2015 TECHNIQUE: Standard unenhanced head CT. The dose-length product (DLP) was 605.33 mGy-cm. The mA was a djusted according to patient size. Iterative reconstruction technique was employed. FINDINGS: There is no intracranial hemorrhage, acute infarction, or abnormal mass lesion. The ventric les are normal. There is no abnormal mass effect or midline shift. The laughlin-white matter differentiat ion is normal. The basal cisterns are patent. The orbits are normal. The paranasal sinuses, mastoids and calvarium are normal. IMPRESSION: 1. No acute intracranial abnormality. Reviewed, dictated and finalized at location B.
[2020-12-18 10:49] VITALS: BP 143/87; PULSE 66; RESP 20; TEMP 36.3; O2SAT 97
--- NOTE | 2020-12-18 10:55 | ECG_ITS ---
Measurements Intervals [place] Rate: 48 P: 24 MT: 185 QRS: 7 QRSD: 85 T: 25 QT: 466 QTc: 417 Interpretive Statements SINUS BRADYCARDIA ABNORMAL ECG Electronically Signed On 12-18-2020 12:18:03 CDT by Mane Thomas D.O.
--- NOTE | 2020-12-18 11:12 | PC.NURSE ---
Pt ambulated steady gait to BR to provide urine sample, stand by assist from specimen technician
[2020-12-18] MEDS: SODIUM CHLORIDE 0.9% IV 1,000 ML 999 ML IV CONT (11:52)
[2020-12-18] MEDS: MECLIZINE HCL 25 MG TABLET PO (11:53)
[2020-12-18] MEDS: diazePAM INJ (*CRX) 10 MG/2 ML SYRINGE 2.5 MG IV PUSH (11:54)
[2020-12-18 11:58] LABS: Basophils Percent Auto 0.5 % (0.2-1.2); Eosinophils Absolute Auto 0.1 K/mm3 (0-0.3); Eosinophils Percent Auto 1.6 % (0-4.4); Hematocrit 39.6 % (37.0-47.0); Hemoglobin 13.1 g/dL (12.0-15.0); Immature Granulocyte Absolute 0.01 K/mm3 (0.00-0.031); Immature Granulocyte Percent A 0.2 % (0-0.5); Lymphocytes Absolute Auto 2.17 K/mm3 (0.9-3.2); Lymphocytes Percent Auto 33.9 % (18.3-44.2); Mean Corpuscular HGB Conc 33.1 g/dl (32-36); Mean Corpuscular Hemoglobin 28.9 pg (26-34); Mean Corpuscular Volume 87.4 fl (80-100); Mean Platelet Volume 11.7 fl (7.4-10.4); Monocytes Absolute Auto 0.3 K/mm3 (0.1-0.6); Monocytes Percent Auto 5.3 % (2.6-8.5); Neutrophils Absolute Auto 3.8 K/mm3 (1.3-6.7); Neutrophils Percent Auto 58.5 % (45.5-73.1); Platelet Count Result 240 k/mm3 (150-375); Red Blood Count 4.53 M/mm3 (4.2-5.4); Red Cell Distribution Width 12.6 % (11.5-14.5); White Blood Count 6.4 K/mm3 (4.5-10.0)
[2020-12-18 12:10] LABS: Anion Gap 6 mmol/L (8-16); Blood Urea Nitrogen 18 mg/dL (7-17); Calcium 9.2 mg/dL (8.4-10.2); Carbon Dioxide 27 mmol/L (22-30); Chloride 107 mmol/L (98-107); Estimated Glomerular Filt Rate > 60; Glucose 100 mg/dL (65-105); INR 0.9; Potassium 4.1 mmol/L (3.4-5.0); Prothrombin Time 12.9 Seconds (11.1-14.7); Sodium 140 mmol/L (137-145)
[2020-12-18 12:11] LABS: Partial Thromboplastin Time 29.7 SECONDS (22.3-36.8)
[2020-12-18 12:12] LABS: Add Urine Microscopic? YES; Appearance Urine Clear (Clear); Bilirubin Urine Negative (Negative); Blood Urine Negative (Negative); Color Urine Straw (Yellow); Glucose Urine UA Negative (Negative); Ketones Urine Negative (Negative); Leukocyte Esterase Ur Trace LEU/UL (Negative); Nitrate Urine Negative (Negative); Protein Urine Negative (Negative); RBC Urine 0-2 /hpf (0-2); Squamous Epithelial Cell Urine Few /hpf (Few); Urobilinogen Urine Negative mg/dL (<2.0); WBC Urine 0-3 /hpf
--- NOTE | 2020-12-18 12:28 | ED.DIZZY ---
HPI - Dizziness General Chief Complaint: Dizziness Stated Complaint: DIZZY,NAUSEA,MANCILLA Time Seen by Provider: 12/18/20 10:43 Source: patient, EMS and other (Primary care doctor office [facility]) Mode of arrival: EMS Limitations: no limitations History of Present Illness HPI Narrative: Patient is a 40-year-old female who presents to emergency department for evaluation of positional dizziness that began today he had felt fatigued yesterday patient notes that with standing and ambulation she feels off balance patient has had a distant history of vertigo notes that this seems different in regards to the dizziness component patient denies any recent illness notes that she did recently have the [employer] vaccine for Covid. Patient denies other illness or complaints patient has not taken anything for her symptoms Related Data Allergies Allergy/AdvReac Type Severity Reaction Status Date / Time metronidazole Allergy Severe Nausea and Verified 12/18/20 11:01 Vomiting prochlorperazine Allergy Severe Nervousness Verified 12/18/20 11:01 cephalexin Allergy Intermediate Rash Verified 12/18/20 11:01 zolpidem Allergy Unknown Hallucinate Verified 12/18/20 11:01 Review of Systems Review of Systems: All systems reviewed & are unremarkable except as noted in HPI and below PMFSH Past Medical History Medical History Abdominal pain Anxiety Anxiety and depression Colon cancer screening GERD (gastroesophageal reflux disease) Hemorrhoids Herpes labialis without complication Nausea and vomiting in adult Splenomegaly Tobacco dependence Surgical History Surgical History History of History of foot surgery History of hemorrhoidectomy History of laparoscopic cholecystectomy History of renal stent History of tonsillectomy Hx of appendectomy Family History Family History Father Hypertension Grandparent Cerebrovascular accident Family history of pancreatic cancer Diabetes mellitus Family history of pancreatic disease Unknown Diabetes mellitus Mother No problems noted. Sibling No problems noted. 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 Gender identity (if verbalized by the patient): Female Spiritual care concerns: No Exam Narrative: Exam Narrative: GENERAL: Well-appearing, morbidly obese, and in no acute distress. HEAD: Normocephalic, atraumatic. EYES: PERRLA and EOMI. ENT: Nares clear, no rhinorrhea or epistaxis. Mucous membranes moist. Oropharynx without tonsillar hypertrophy exudate or other lesions. Bilateral TMs pearly laughlin nonbulging NECK: Supple. No adenopathy or masses. No carotid bruits or JVD CHEST: Clear to auscultation. No respiratory distress. No wheezes rales or rhonchi HEART: Regular rate and rhythm. No murmur heard. Normal peripheral pulses. ABDOMEN: Soft, nontender, nondistended EXTREMITIES: Normal range of motion. No edema. SKIN: Warm, dry, no rash. NEURO: No focal deficits. Alert and oriented x3. Cranial nerves II through XII grossly intact PSYCH: Normal mood and affect. Course Course Emergency Course: Patient evaluated for dizziness in the emergency department no high risk changes patient is afebrile nontoxic-appearing no distress felt appropriate for outpatient reevaluation was given medications with improvement no high risk changes in the imaging or blood work patient was made aware of the findings of her studies patient ag
[2020-12-18 14:11] VITALS: BP 101/73; PULSE 62; RESP 17; O2SAT 99
--- NOTE | 2020-12-18 14:28 | PC.NURSE ---
Pt escorted by WC to exit, pt able to ambulate around room and dress self. Pt has ride coming to pick her up
== END 2020-12-18 14:28 | disposition home or self-care (01) ==
PROVIDERS: Emergency Medicine Emergency Medical Services; Emergency Provider Emergency Medicine; PCP Family Medicine
DX: R42 Dizziness and giddiness (principal); K21.9 Gastro-esophageal reflux disease without esophagitis; F17.210 Nicotine dependence, cigarettes, uncomplicated; R00.1 Bradycardia, unspecified; Z96.0 Presence of urogenital implants
CPT/HCPCS: 36415; 70450; 71045; 80048; 81001; 85025; 85610; 85730; 93005; 96361; 96374; 99284; A9270; J3360; J7030

== ENCOUNTER → 2021-02-04 02:38 | Outpatient (CLI) | payer OTHER, SELFPAY ==
[2021-02-04 18:14] LABS: SARS-CoV-2 RNA PCR Negative
== END ==
PROVIDERS: Nurse Practitioner Family; PCP Family Medicine; Visit Provider Internal Medicine Gastroenterology
DX: Z01.812 Encounter for preprocedural laboratory examination (principal); R51.9 Headache, unspecified; Z20.822 Contact with and (suspected) exposure to COVID-19
CPT/HCPCS: C9803; U0003; U0005

== ENCOUNTER 2021-02-07 01:13 | Day surgery (SDC) | payer OTHER, SELFPAY ==
[2020-12-24 14:11] VITALS: BMI 43.4
[2021-01-31 14:46] VITALS: BMI 43.9
[2021-02-07 11:00] VITALS: BP 135/99; PULSE 77; RESP 18; TEMP 36.1; O2SAT 98
[2021-02-07] MEDS: LACTATED RINGERS 1,000 ML 150 ML IV CONT (11:03)
--- NOTE | 2021-02-07 11:48 | WPDANESEPPF ---
Anes - Initial Pre Proc Eval Procedure: Operation Date: 02/07/21 12:00 Proposed Procedures p Esophagogastroduodenoscopy - Maurice Hernandez MD Date/Time: 02/07/21 11:48 Surgeon: Maurice Hernandez MD Pre Op Diagnosis: GERD Patient Data Age: 40 Gender: F Height: 5 ft 4 in Weight: 117.6 kg Last Vital Signs Temp 96.9 F L 02/07/21 11:00 Pulse 77 02/07/21 11:00 Resp 18 02/07/21 11:00 BP 135/99 H 02/07/21 11:00 Pulse Ox 98 02/07/21 11:00 Allergies Allergy/AdvReac Type Severity Reaction Status Date / Time metronidazole Allergy Severe Nausea and Verified 02/07/21 10:59 Vomiting prochlorperazine Allergy Severe Nervousness Verified 02/07/21 10:59 cephalexin Allergy Intermediate Rash Verified 02/07/21 10:59 zolpidem Allergy Unknown Hallucinate Verified 02/07/21 10:59 Home Medications Medication Instructions Recorded Confirmed Type bupropion HCl 150 mg tablet,12 hr 150 mg PO BID #60 tablet 11/13/19 02/07/21 Rx sustained-release omeprazole 20 mg capsule,delayed 20 mg PO BID #60 cap 05/17/20 02/07/21 Rx release ondansetron 4 mg PO Q6H PRN #7 tablet 12/18/20 02/07/21 Rx meclizine 25 mg tablet 25 mg PO TID PRN #10 tablet 12/23/20 02/07/21 Rx hydroxyzine pamoate 50 mg capsule 50 mg PO TID PRN #90 cap 12/24/20 02/07/21 Rx scopolamine base 1 mg over 3 days 1 patch TRANSDERMAL Q72H PRN #4 ea 01/23/21 02/07/21 Rx transdermal patch Patient hx anesthesia problems: none Family hx anesthesia problems: none PMFSH Past Medical History Medical History Abdominal pain Anxiety Anxiety and depression Colon cancer screening GERD (gastroesophageal reflux disease) Hemorrhoids Herpes labialis without complication Nausea and vomiting in adult Splenomegaly Tobacco dependence Surgical History Surgical History History of History of foot surgery History of hemorrhoidectomy History of laparoscopic cholecystectomy History of renal stent History of tonsillectomy Hx of appendectomy Family History Family History Father Hypertension Grandparent Cerebrovascular accident Family history of pancreatic cancer Diabetes mellitus Family history of pancreatic disease Unknown Diabetes mellitus Mother No problems noted. Sibling No problems noted. 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 Gender identity (if verbalized by the patient): Female Spiritual care concerns: No Anes - Eval Final PreProcedure Day of Procedure 02/07/21 11:48 Patient weight: morbidly obese Heart: regular rate and rhythm Lungs: clear to auscultation Airway: Mallampati scale class III Neurological: alert and oriented Last oral intake: >/= 8 hours ASA classification: III Emergent: no Anesthetic plan: proceed Anesthesia type and monitoring: general GIVS and standard monitoring Informed Consent: The patient's anesthetic plan and its attendant risks and benefits were discussed with the patient/family/POA. Questions were solicited and answers provided to the satisfaction of the patient/family/POA.
--- NOTE | 2021-02-07 12:21 | PM.HPGS ---
History of Present Illness History of Present Illness Consent: Risks, benefits, and alternatives have been discussed and questions answered. Patient agrees to proceed with procedure. Chief complaint: GERD Narrative: Amarilis Yepez is a 40 year old female with erosive esophagitis 05/2020 on omeprazole 20mg bid, still symptomatic Review of Systems Constitutional: Constitutional: Denies headache(s) and Denies weakness Eyes: Eyes: Denies blurry vision ENT: Reports Normal hearing present, Denies headache(s) and Denies neck pain Cardiovascular: Cardiovascular: Denies chest pain and Denies dyspnea Respiratory: Respiratory: Denies dyspnea Gastrointestinal: Gastrointestinal: Reports no additional gastrointestinal complaints Genitourinary: Genitourinary: Denies dysuria Musculoskeletal: Musculoskeletal: Denies neck pain Integumentary/Breasts: Skin/Breast: Denies dry skin Neurologic: Reports Normal hearing present, Denies headache(s) and Denies weakness Psychiatric: Psychiatric: Denies anxiety Endocrine: Endocrine: Denies change in body appearance Hematologic/Lymphatic: Hematologic/Lymphatic: Denies easy bleeding Allergic/Immunologic: Allergic/Immunologic: Denies urticaria PMFSH Past Medical History Medical History Abdominal pain Anxiety Anxiety and depression Colon cancer screening GERD (gastroesophageal reflux disease) Hemorrhoids Herpes labialis without complication Nausea and vomiting in adult Splenomegaly Tobacco dependence Surgical History Surgical History History of History of foot surgery History of hemorrhoidectomy History of laparoscopic cholecystectomy History of renal stent History of tonsillectomy Hx of appendectomy Family History Family History Father Hypertension Grandparent Cerebrovascular accident Family history of pancreatic cancer Diabetes mellitus Family history of pancreatic disease Unknown Diabetes mellitus Mother No problems noted. Sibling No problems noted. 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 Gender identity (if verbalized by the patient): Female Spiritual care concerns: No Meds Home Medications and Allergies Home Medications Medication Instructions Recorded Confirmed Type bupropion HCl 150 mg tablet,12 hr 150 mg PO BID #60 tablet 11/13/19 02/07/21 Rx sustained-release omeprazole 20 mg capsule,delayed 20 mg PO BID #60 cap 05/17/20 02/07/21 Rx release ondansetron 4 mg PO Q6H PRN #7 tablet 12/18/20 02/07/21 Rx meclizine 25 mg tablet 25 mg PO TID PRN #10 tablet 12/23/20 02/07/21 Rx hydroxyzine pamoate 50 mg capsule 50 mg PO TID PRN #90 cap 12/24/20 02/07/21 Rx scopolamine base 1 mg over 3 days 1 patch TRANSDERMAL Q72H PRN #4 ea 01/23/21 02/07/21 Rx transdermal patch Allergies Allergy/AdvReac Type Severity Reaction Status Date / Time metronidazole Allergy Severe Nausea and Verified 02/07/21 10:59 Vomiting prochlorperazine Allergy Severe Nervousness Verified 02/07/21 10:59 cephalexin Allergy Intermediate Rash Verified 02/07/21 10:59 zolpidem Allergy Unknown Hallucinate Verified 02/07/21 10:59 Vital Signs Vital Signs - 24 hr 02/07/21 11:00 Temperature 96.9 F L Pulse Rate 77 Respiratory Rate 18 Blood Pressure 135/99 H Pulse Oximetry 98 Exam Const: General: comfortable and n
[2021-02-07 12:26] VITALS: BP 128/82; PULSE 69; RESP 21; O2SAT 100
[2021-02-07 12:36] VITALS: BP 136/87; PULSE 63; RESP 22; O2SAT 99
[2021-02-07 12:46] VITALS: BP 122/83; PULSE 69; RESP 23; O2SAT 100
== END 2021-02-07 12:50 | disposition home or self-care (01) ==
PROVIDERS: PCP Family Medicine; Visit Provider Internal Medicine Gastroenterology
PROC: 0DJ08ZZ Inspection of Upper Intestinal Tract, Via Natural or Artificial Opening Endoscopic (ICD-10-PCS; CPT 43235; principal; 2021-02-07 12:00)
DX: K21.00 Gastro-esophageal reflux disease with esophagitis, without bleeding (principal); K44.9 Diaphragmatic hernia without obstruction or gangrene; F41.8 Other specified anxiety disorders; F17.210 Nicotine dependence, cigarettes, uncomplicated; F12.90 Cannabis use, unspecified, uncomplicated; E66.01 Morbid (severe) obesity due to excess calories; Z68.41 Body mass index [BMI] 40.0-44.9, adult
CPT/HCPCS: 43239; 88305; J7120

== ENCOUNTER 2021-03-13 08:53 | Outpatient (CLI) | payer OTHER, SELFPAY ==
--- NOTE | ~2021-03-13 | NM_ITS ---
EXAM: NM gastric emptying study DATE: 03/13/2021 13:34 INDICATION: Diaphragmatic hernia without obstruction or gangrene. TECHNIQUE: A gastric emptying study was performed using the methodology of Wilber MANCILLA, et al. J Nucl Med 2007; 48:568-572. The patient was given a meal consisting of 2 scrambled eggs labeled with 0.955 mCi Tc-99m sulfur colloid, 2 slices of toast, two packages of jam, and approximately 120 mL of water . Simultaneous anterior and posterior 1-min images of the abdomen were obtained with the patient supi ne at multiple time points over a total period of 4 hours. The geometric mean of anterior and posteri or views was determined, and the percentage retention was calculated for each time point. COMPARISON: CT abdomen and pelvis 04/20/2020 FINDINGS: Gastric retention of the radiotracer-labeled meal was 62%, 39%, and 8% at the 1-hour, 2-ho ur, and 4-hour time points, respectively. With this technique, apparent rapid gastric emptying is sug gested by <30% gastric retention at 1 hour. Delayed gastric emptying is defined by gastric retention of >90% at 1 hour, >60% retention at 2 hours, or >10% retention at 4 hours. IMPRESSION: 1. Normal gastric emptying. Reviewed, dictated and finalized at location A. IMPRESSION: 1. Normal gastric emptying.
== END 2021-03-13 08:54 | disposition home or self-care (01) ==
PROVIDERS: PCP Family Medicine; Visit Provider Surgery
DX: K44.9 Diaphragmatic hernia without obstruction or gangrene (principal)
CPT/HCPCS: 78264; A9541

== ENCOUNTER 2021-03-28 13:07 | Emergency (ER) | payer OTHER, SELFPAY ==
--- NOTE | 2021-03-28 13:10 | ECG_ITS ---
Measurements Intervals [place] Rate: 82 P: 43 FL: 170 QRS: 4 QRSD: 81 T: 46 QT: 379 QTc: 444 Interpretive Statements SINUS RHYTHM NORMAL ECG Electronically Signed On 03-28-2021 13:53:07 CDT by Mane Thomas D.O.
[2021-03-28 13:27] VITALS: BP 118/69; PULSE 92; RESP 20; TEMP 36.5; O2SAT 99
[2021-03-28 13:56] LABS: Basophils Percent Auto 0.6 % (0.2-1.2); Eosinophils Percent Auto 0.2 % (0-4.4); Hematocrit 42.7 % (37.0-47.0); Immature Granulocyte Absolute 0.03 K/mm3 (0.00-0.031); Immature Granulocyte Percent A 0.5 % (0-0.5); Lymphocytes Absolute Auto 1.58 K/mm3 (0.9-3.2); Lymphocytes Percent Auto 25.4 % (18.3-44.2); Mean Corpuscular HGB Conc 32.8 g/dl (32-36); Mean Corpuscular Hemoglobin 28.7 pg (26-34); Mean Corpuscular Volume 87.5 fl (80-100); Mean Platelet Volume 10.5 fl (7.4-10.4); Monocytes Absolute Auto 0.3 K/mm3 (0.1-0.6); Monocytes Percent Auto 4.2 % (2.6-8.5); Neutrophils Absolute Auto 4.3 K/mm3 (1.3-6.7); Neutrophils Percent Auto 69.1 % (45.5-73.1); Platelet Count Result 318 k/mm3 (150-375); Red Blood Count 4.88 M/mm3 (4.2-5.4); Red Cell Distribution Width 13.7 % (11.5-14.5); White Blood Count 6.2 K/mm3 (4.5-10.0)
[2021-03-28 14:09] LABS: Alanine Aminotransferase 29 U/L (4-35); Albumin Level 4.7 g/dL (3.5-5.1); Alkaline Phosphatase 87 U/L (38-126); Anion Gap 11 mmol/L (8-16); Aspartate Amino Transferase 38 U/L (14-36); Bilirubin,Total 0.3 mg/dL (0.2-1.3); Blood Urea Nitrogen 14 mg/dL (7-17); Calcium 9.6 mg/dL (8.4-10.2); Carbon Dioxide 25 mmol/L (22-30); Chloride 105 mmol/L (98-107); Estimated CRCL calculation 120 ml/min; Estimated Glomerular Filt Rate > 60; Glucose 106 mg/dL (65-110); Potassium 3.9 mmol/L (3.4-5.0); Sodium 141 mmol/L (137-145)
[2021-03-28 14:25] VITALS: BP 135/97; PULSE 78; RESP 16; O2SAT 99
[2021-03-28 14:31] VITALS: BP 130/93; PULSE 74; RESP 20; O2SAT 99
[2021-03-28 14:45] LABS: Add Urine Microscopic? YES; Appearance Urine Clear (Clear); Bacteria Urine Trace /hpf; Bilirubin Urine Negative (Negative); Blood Urine Negative (Negative); Color Urine Yellow (Yellow); Glucose Urine UA Negative (Negative); Ketones Urine Negative (Negative); Leukocyte Esterase Ur Negative LEU/UL (Negative); Mucus Urine Rare /lpf; Nitrate Urine Negative (Negative); Protein Urine Negative (Negative); RBC Urine 0-2 /hpf (0-2); Specific Grav Ur 1.021 (1.001-1.035); Squamous Epithelial Cell Urine Few /hpf (Few); Urobilinogen Urine Negative mg/dL (<2.0); WBC Urine 0-3 /hpf
--- NOTE | 2021-03-28 14:48 | ED.DIZZY ---
HPI - Dizziness General Chief Complaint: Dizziness Stated Complaint: vertigo, n/v Time Seen by Provider: 03/28/21 14:36 History of Present Illness HPI Narrative: 40 yo female w/ h/o vertigo presents to the ED for the same. She reports dizziness, nausea, vomiting since this morning. She has not tried anythig for her symptoms. Her symptoms are similar to previous episodes of vertigo. No ear pain or tinnitus. Related Data Allergies Allergy/AdvReac Type Severity Reaction Status Date / Time metronidazole Allergy Severe Nausea and Verified 03/28/21 15:20 Vomiting prochlorperazine Allergy Severe Nervousness Verified 03/28/21 15:20 cephalexin Allergy Intermediate Rash Verified 03/28/21 15:20 zolpidem Allergy Unknown Hallucinate Verified 03/28/21 15:20 Review of Systems Review of Systems: All systems reviewed & are unremarkable except as noted in HPI and below Constitutional: Constitutional: Denies chills and Denies fever(s) Eyes: Eyes: Reports no additional eye complaints ENT: Reports vertigo, Denies nasal congestion and Denies sore throat Cardiovascular: Cardiovascular: Denies chest pain Respiratory: Respiratory: Denies dyspnea Gastrointestinal: Gastrointestinal: Denies abdominal pain, Denies diarrhea, Reports nausea and Reports vomiting Genitourinary: Genitourinary: Reports no additional female genitourinary complaints Musculoskeletal: Musculoskeletal: Reports no additional musculoskeletal complaints Neurologic: Denies syncope, Denies numbness and Denies weakness PMF Past Medical History Medical History Abdominal pain Anxiety Anxiety and depression Colon cancer screening Erosive esophagitis GERD (gastroesophageal reflux disease) Hemorrhoids Herpes labialis without complication Nausea and vomiting in adult Splenomegaly Tobacco dependence Surgical History Surgical History History of History of foot surgery History of hemorrhoidectomy History of hysterectomy History of laparoscopic cholecystectomy History of renal stent History of tonsillectomy Hx of appendectomy Family History Family History Father Hypertension Grandparent Cerebrovascular accident Family history of pancreatic cancer Diabetes mellitus Family history of pancreatic disease Unknown Diabetes mellitus Mother No problems noted. Sibling No problems noted. Social History Social History Smoking packs per day: 0.5 Smoking cigarettes per day: 10.0 Years smoked: 7 Smoking pack-years: 3.50 Smoking status: Current every day smoker Tobacco type: cigarettes Second hand tobacco smoke exposure: No Alcohol intake: current Substance use: current Substance use type: marijuana Additional occupation/education comments: Sales Gender identity (if verbalized by the patient): Female Spiritual care concerns: No Exam Const: General: no acute distress and alert Nutritional Appearance: obese Orientation/consciousness: patient oriented x3 HENMT: Head: normal to inspection Ears: TM's normal bilaterally, EAC's normal and external ear abnormal Eyes: Conjunctivae: conjunctivae normal Pupils: Equal, round and reactive pupils present EOM: EOMs intact bilaterally Neck: Neck: normal visual inspection Resp: Effort & Inspection: normal respiratory effort Auscultation: clear to auscultation bilaterally Cardio: Rate: regular rate Rhythm: regular rhythm GI: GI Palp: Yes Soft to palpation and No Tenderness to palpation present (GI) Skin: General skin exam: normal color Neuro: General: patient oriented x3, moves all extremities and CN's II-XI intact bilaterally Speech: normal speech Extrem: General: normal to inspection Psych: Affect: Anxious affect presen
[2021-03-28 15:01] VITALS: BP 131/78; PULSE 73; RESP 11; O2SAT 100
[2021-03-28] MEDS: ONDANSETRON INJ 4 MG/2 ML VIAL IV PUSH (15:23)
[2021-03-28] MEDS: SODIUM CHLORIDE 0.9% IV 1,000 ML 999 ML IV CONT (15:24)
[2021-03-28] MEDS: diazePAM INJ (*CRX) 10 MG/2 ML SYRINGE 5 MG IV PUSH (15:24)
[2021-03-28 17:01] VITALS: BP 117/76; PULSE 72; RESP 15; O2SAT 100
[2021-03-28] MEDS: MECLIZINE HCL 25 MG TABLET PO (17:01)
[2021-03-28 18:40] VITALS: BP 133/90; PULSE 77; RESP 16; O2SAT 98
== END 2021-03-28 18:40 | disposition home or self-care (01) ==
PROVIDERS: Emergency Provider Emergency Medicine; PCP Family Medicine
DX: R42 Dizziness and giddiness (principal); F41.9 Anxiety disorder, unspecified; F32.9 Major depressive disorder, single episode, unspecified; K21.9 Gastro-esophageal reflux disease without esophagitis; F17.210 Nicotine dependence, cigarettes, uncomplicated
CPT/HCPCS: 36415; 80053; 81001; 81025; 85025; 93005; 96361; 96374; 96375; 99284; A9270; J2405; J3360; J7030

== ENCOUNTER 2021-04-01 18:12 | Emergency (ER) | payer OTHER, SELFPAY | END 2021-04-01 18:40 | disposition left against medical advice (07) | PROVIDERS: PCP Family Medicine | DX: Z53.21 Procedure and treatment not carried out due to patient leaving prior to being seen by health care provider (principal) | CPT/HCPCS: 99199 ==

== ENCOUNTER 2021-04-04 10:45 | Emergency (ER) | payer OTHER, SELFPAY ==
[2021-04-04] VITALS (22 sets, daily range): BP systolic 116–132; BP diastolic 69–94; PULSE 68–105; RESP 14–24; TEMP 36.3; O2SAT 93–99
--- NOTE | ~2021-04-04 | XR_ITS ---
EXAMINATION: XR chest 1V portable 04/04/2021 11:40 INDICATION: Sternal chest tightness PROCEDURE: AP portable chest COMPARISON: Comparison to multiple prior studies sequentially, with oldest reviewed study dated 04/20. FINDINGS: The lungs are clear. The cardiomediastinal silhouette is within normal limits. There are no pleural effusions. There is no pneumothorax suspected. IMPRESSION: 1: NO ACUTE CARDIOPULMONARY DISEASE. Reviewed, dictated and finalized at location A.
--- NOTE | 2021-04-04 11:20 | ECG_ITS ---
Measurements Intervals [place] Rate: 99 P: 24 [place]: 174 QRS: 5 QRSD: 77 T: 49 QT: 348 QTc: 447 Interpretive Statements SINUS RHYTHM LOW QRS VOLTAGE IN PRECORDIAL LEADS BASELINE ARTIFACT- I, III, AVL, AVF BORDERLINE ECG Electronically Signed On 04-04-2021 11:33:50 CDT by Mane Thomas D.O.
[2021-04-04] MEDS: LIDOCAINE HCL 2% VISC SOLN 15 ML UDC 20 ML PO (11:40)
[2021-04-04] MEDS: SODIUM CHLORIDE 0.9% IV 1,000 ML 999 ML IV CONT (11:40)
[2021-04-04] MEDS: MAG HYDROX/AL HYDROX/SIMETH 30 ML UDC PO (11:40)
[2021-04-04 13:05] LABS: INR 0.8; Prothrombin Time 11.2 Seconds (11.1-14.7)
[2021-04-04 13:06] LABS: Alanine Aminotransferase 18 U/L (4-35); Albumin Level 4.3 g/dL (3.5-5.1); Alkaline Phosphatase 77 U/L (38-126); Anion Gap 10 mmol/L (8-16); Aspartate Amino Transferase 26 U/L (14-36); Bilirubin,Total 0.2 mg/dL (0.2-1.3); Blood Urea Nitrogen 18 mg/dL (7-17); Calcium 8.9 mg/dL (8.4-10.2); Carbon Dioxide 21 mmol/L (22-30); Chloride 108 mmol/L (98-107); Estimated CRCL calculation 120 ml/min; Estimated Glomerular Filt Rate > 60; Glucose 85 mg/dL (65-110); Lipase 165 U/L (23-300); Potassium 4.7 mmol/L (3.4-5.0); Sodium 139 mmol/L (137-145)
[2021-04-04 13:06] LABS: Add Urine Microscopic? YES; Appearance Urine Clear (Clear); Bacteria Urine Trace /hpf; Bilirubin Urine Negative (Negative); Blood Urine Negative (Negative); Color Urine Yellow (Yellow); Glucose Urine UA Negative (Negative); Ketones Urine Negative (Negative); Leukocyte Esterase Ur Negative LEU/UL (Negative); Nitrate Urine Negative (Negative); Protein Urine Negative (Negative); Specific Grav Ur 1.019 (1.001-1.035); Squamous Epithelial Cell Urine Occasional /hpf (Few); Urobilinogen Urine Negative mg/dL (<2.0); WBC Urine 0-3 /hpf
[2021-04-04 13:17] LABS: Troponin I < 0.012 ng/mL (0.000-0.034)
[2021-04-04 13:51] LABS: Basophils Percent Auto 0.3 % (0.2-1.2); Eosinophils Absolute Auto 0.1 K/mm3 (0-0.3); Eosinophils Percent Auto 1.8 % (0-4.4); Hematocrit 38.1 % (37.0-47.0); Hemoglobin 12.3 g/dL (12.0-15.0); Immature Granulocyte Absolute 0.01 K/mm3 (0.00-0.031); Immature Granulocyte Percent A 0.2 % (0-0.5); Lymphocytes Percent Auto 37.4 % (18.3-44.2); Mean Corpuscular HGB Conc 32.3 g/dl (32-36); Mean Corpuscular Hemoglobin 28.6 pg (26-34); Mean Corpuscular Volume 88.6 fl (80-100); Mean Platelet Volume 10.3 fl (7.4-10.4); Monocytes Absolute Auto 0.4 K/mm3 (0.1-0.6); Neutrophils Absolute Auto 3.3 K/mm3 (1.3-6.7); Neutrophils Percent Auto 53.3 % (45.5-73.1); Platelet Count Result 245 k/mm3 (150-375); Red Cell Distribution Width 13.5 % (11.5-14.5); White Blood Count 6.2 K/mm3 (4.5-10.0)
[2021-04-04] MEDS: LORazepam INJ (*CRX) 2 MG/ML VIAL 1 MG IV PUSH (14:01)
--- NOTE | 2021-04-04 14:10 | ED.CHESTPAIN ---
HPI - Chest Pain General Chief Complaint: Chest Pain <Dain Bro PA-C - Last Filed: 04/04/21 14:44> Stated Complaint: cp <Dain Bro PA-C - Last Filed: 04/04/21 14:44> Time Seen by Provider: 04/04/21 10:49 <Dain Bro PA-C - Last Filed: 04/04/21 14:44> Source: patient and RN notes reviewed <Dain Bro PA-C - Last Filed: 04/04/21 14:44> Mode of arrival: ambulatory <Dain Bro PA-C - Last Filed: 04/04/21 14:44> Limitations: no limitations <Dain Bro PA-C - Last Filed: 04/04/21 14:44> History of Present Illness HPI narrative: Patient is a 40-year-old female who presents to emergency department for evaluation of dizziness chest discomfort nausea presents per EMS began this morning acutely denies any recent illness or similar occurrence in the past patient on arrival does not appear distressed and notes mild chest discomfort midsternal as well as dizziness notes she does have a history of vertigo <Dain Bro PA-C - Last Filed: 04/04/21 14:44> Related Data Allergies/Adverse Reactions: Allergies Allergy/AdvReac Type Severity Reaction Status Date / Time metronidazole Allergy Severe Nausea and Verified 03/28/21 15:20 Vomiting prochlorperazine Allergy Severe Nervousness Verified 03/28/21 15:20 cephalexin Allergy Intermediate Rash Verified 03/28/21 15:20 zolpidem Allergy Unknown Hallucinate Verified 03/28/21 15:20 <Dain Bro PA-C - Last Filed: 04/04/21 14:44> Review of Systems Review of Systems: All systems reviewed & are unremarkable except as noted in HPI and below <Dain Bro PA-C - Last Filed: 04/04/21 14:44> [facility] Past Medical History Medical History: Medical History Abdominal pain Anxiety Anxiety and depression Colon cancer screening Erosive esophagitis GERD (gastroesophageal reflux disease) Hemorrhoids Herpes labialis without complication Nausea and vomiting in adult Splenomegaly Tobacco dependence <Dain Bro PA-C - Last Filed: 04/04/21 14:44> Surgical History Surgical History: Surgical History History of History of foot surgery History of hemorrhoidectomy History of hysterectomy History of laparoscopic cholecystectomy History of renal stent History of tonsillectomy Hx of appendectomy <Dain Bro PA-C - Last Filed: 04/04/21 14:44> Family History Family History: Family History Father Hypertension Grandparent Cerebrovascular accident Family history of pancreatic cancer Diabetes mellitus Family history of pancreatic disease Unknown Diabetes mellitus Mother No problems noted. Sibling No problems noted. <Dain Bro PA-C - Last Filed: 04/04/21 14:44> Social History Social History: Social History Smoking packs per day: 0.5 Smoking cigarettes per day: 10.0 Years smoked: 7 Smoking pack-years: 3.50 Smoking status: Current every day smoker Tobacco type: cigarettes Second hand tobacco smoke exposure: No Alcohol intake: current Substance use: current Substance use type: marijuana Additional occupation/education comments: Sales Gender identity (if verbalized by the patient): Female Spiritual care concerns: No <Dain Bro PA-C - Last Filed: 04/04/21 14:44> Exam Narrative: GENERAL: Well-appearing, well-nourished, and in no acute distress. HEAD: Normocephalic, atraumatic. EYES: PERRLA and EOMI. ENT: Nares clear, no rhinorrhea or epistaxis. Mucous membranes moist. Oropharynx without tonsillar hypertrophy exudate or other lesions. CHEST: Clear to auscultation. No respiratory distress. No wheezes rales or rhonchi HEART: Regular rate and rhythm. No murmur
== END 2021-04-04 14:56 | disposition home or self-care (01) ==
PROVIDERS: Emergency Medicine Emergency Medical Services; Emergency Provider General Practice; PCP Family Medicine
DX: R42 Dizziness and giddiness (principal); K21.9 Gastro-esophageal reflux disease without esophagitis; F17.210 Nicotine dependence, cigarettes, uncomplicated; F41.9 Anxiety disorder, unspecified; F32.9 Major depressive disorder, single episode, unspecified; R94.31 Abnormal electrocardiogram [ECG] [EKG]
CPT/HCPCS: 36415; 71045; 80053; 81001; 83690; 84484; 85025; 85610; 85730; 93005; 96361; 96374; 99284; A9270; J2060; J7030

== ENCOUNTER 2021-04-21 14:11 | Emergency (ER) | payer OTHER, SELFPAY ==
[2021-04-21] VITALS (20 sets, daily range): BP systolic 126–149; BP diastolic 79–97; PULSE 66–86; RESP 12–23; TEMP 36.1; O2SAT 93–100
--- NOTE | ~2021-04-21 | XR_ITS ---
EXAMINATION: XR chest 2V DATE: 04/21/2021 14:36 INDICATION: Palpitations. Tachycardia. TECHNIQUE: Frontal and lateral views of the chest were obtained. COMPARISON: Chest single view 04/04/2021, CT abdomen and pelvis 04/20/2020 FINDINGS: The chest demonstrates clear lungs without pneumonia, pleural effusion, or pneumothorax. Th e heart size is normal. Surgical clips in the right upper quadrant are likely from cholecystectomy. IMPRESSION: 1. No acute cardiopulmonary disease. Reviewed, dictated and finalized at location B.
--- NOTE | 2021-04-21 14:13 | ECG_ITS ---
Measurements Intervals [place] Rate: 85 P: 21 GA: 171 QRS: 0 QRSD: 72 T: 48 QT: 354 QTc: 423 Interpretive Statements SINUS RHYTHM VOLTAGE CRITERIA FOR LVH BORDERLINE ECG Electronically Signed On 04-21-2021 14:23:22 CDT by Mane Thomas D.O.
[2021-04-21 14:38] LABS: Basophils Percent Auto 0.4 % (0.2-1.2); Eosinophils Absolute Auto 0.1 K/mm3 (0-0.3); Eosinophils Percent Auto 0.8 % (0-4.4); Hematocrit 41.7 % (37.0-47.0); Hemoglobin 13.7 g/dL (12.0-15.0); Immature Granulocyte Absolute 0.02 K/mm3 (0.00-0.031); Immature Granulocyte Percent A 0.2 % (0-0.5); Lymphocytes Absolute Auto 2.66 K/mm3 (0.9-3.2); Mean Corpuscular HGB Conc 32.9 g/dl (32-36); Mean Corpuscular Hemoglobin 28.6 pg (26-34); Mean Corpuscular Volume 87.1 fl (80-100); Mean Platelet Volume 10.3 fl (7.4-10.4); Monocytes Absolute Auto 0.5 K/mm3 (0.1-0.6); Monocytes Percent Auto 5.9 % (2.6-8.5); Neutrophils Percent Auto 60.7 % (45.5-73.1); Platelet Count Result 298 k/mm3 (150-375); Red Blood Count 4.79 M/mm3 (4.2-5.4); Red Cell Distribution Width 13.3 % (11.5-14.5); White Blood Count 8.3 K/mm3 (4.5-10.0)
[2021-04-21 14:49] LABS: INR 0.9; Prothrombin Time 11.7 Seconds (11.1-14.7)
[2021-04-21 14:50] LABS: Partial Thromboplastin Time 26.4 SECONDS (22.3-36.8)
[2021-04-21 14:58] LABS: Anion Gap 10 mmol/L (8-16); Blood Urea Nitrogen 19 mg/dL (7-17); Calcium 9.5 mg/dL (8.4-10.2); Carbon Dioxide 22 mmol/L (22-30); Chloride 103 mmol/L (98-107); Estimated CRCL calculation 106 ml/min; Estimated Glomerular Filt Rate > 60; Glucose 90 mg/dL (65-110); Potassium 3.8 mmol/L (3.4-5.0); Sodium 135 mmol/L (137-145)
[2021-04-21 15:08] LABS: Troponin I < 0.012 ng/mL (0.000-0.034)
[2021-04-21 18:27] LABS: Add Urine Microscopic? YES; Appearance Urine Clear (Clear); Bilirubin Urine Negative (Negative); Blood Urine Negative (Negative); Color Urine Yellow (Yellow); Glucose Urine UA Negative (Negative); Ketones Urine Trace mg/dL (Negative); Leukocyte Esterase Ur 1+ LEU/UL (Negative); Mucus Urine Rare /lpf; Nitrate Urine Negative (Negative); Protein Urine Negative (Negative); Specific Grav Ur 1.026 (1.001-1.035); Squamous Epithelial Cell Urine Rare /hpf (Few); Urobilinogen Urine Negative mg/dL (<2.0)
[2021-04-21 19:10] LABS: Troponin I < 0.012 ng/mL (0.000-0.034)
--- NOTE | 2021-04-21 19:29 | ED.GENADULT ---
HPI - General Adult General Chief complaint: Arrhythmia/Palpitations Stated complaint: PALPATATIONS Time Seen by Provider: 04/21/21 17:17 Source: patient, RN notes reviewed and old records reviewed Mode of arrival: ambulatory Limitations: no limitations History of Present Illness HPI narrative: Patient is a 40-year-old female who presents to emergency department for evaluation of palpitations for the last several days patient notes that they occur with activity she has been having multiple different issues of late followed by primary care who is evaluating her for them and working to mild currently waiting for a referral to neurology for some chronic vertigo patient on arrival is in the room in no distress does not appear uncomfortable denies any recent illness or URI symptoms Related Data Allergies Allergy/AdvReac Type Severity Reaction Status Date / Time metronidazole Allergy Severe Nausea and Verified 04/08/21 07:44 Vomiting prochlorperazine Allergy Severe Nervousness Verified 04/08/21 07:44 cephalexin Allergy Intermediate Rash Verified 04/08/21 07:44 zolpidem Allergy Unknown Hallucinate Verified 04/08/21 07:44 Review of Systems Review of Systems: All systems reviewed & are unremarkable except as noted in HPI and below PMFSH Past Medical History Medical History Abdominal pain Anxiety Anxiety and depression BMI 28.0-28.9,adult Colon cancer screening Erosive esophagitis GERD (gastroesophageal reflux disease) Hemorrhoids Herpes labialis without complication Nausea and vomiting in adult Splenomegaly Tobacco dependence Surgical History Surgical History History of History of foot surgery History of hemorrhoidectomy History of hysterectomy History of laparoscopic cholecystectomy History of renal stent History of tonsillectomy Hx of appendectomy Family History Family History Father Hypertension Grandparent Cerebrovascular accident Family history of pancreatic cancer Diabetes mellitus Family history of pancreatic disease Unknown Diabetes mellitus Mother No problems noted. Sibling No problems noted. Social History Social History Smoking packs per day: 0.5 Smoking cigarettes per day: 10.0 Years smoked: 7 Smoking pack-years: 3.50 Smoking status: Former smoker Tobacco type: cigarettes Second hand tobacco smoke exposure: No Alcohol intake: current Substance use: current Substance use type: marijuana Additional occupation/education comments: Sales Gender identity (if verbalized by the patient): Female Spiritual care concerns: No Exam Narrative: GENERAL: Well-appearing, well-nourished, and in no acute distress. HEAD: Normocephalic, atraumatic. EYES: PERRLA and EOMI. ENT: Nares clear, no rhinorrhea or epistaxis. Mucous membranes moist. Oropharynx without tonsillar hypertrophy exudate or other lesions. NECK: Supple. No adenopathy or masses. CHEST: Clear to auscultation. No respiratory distress. No wheezes rales or rhonchi HEART: Regular rate and rhythm. No murmur heard. Normal peripheral pulses. ABDOMEN: Soft, nontender, nondistended EXTREMITIES: Normal range of motion. No edema. SKIN: Warm, dry, no rash. NEURO: No focal deficits. Alert and oriented x3. Cranial nerves II through XII grossly intact. Normal speech and gait PSYCH: Normal mood and affect. Course Course Emergency Course: Patient evaluated the emergency department for palpitations no concerning findings has remained hemodynamically stable engine monitor has not shown any arrhythmia as she has normal heart rate no other symptoms or findings concerning at this time felt appropriate for outpatient reevaluation advised to follow with primary care for further
== END 2021-04-21 19:58 | disposition home or self-care (01) ==
PROVIDERS: Emergency Medicine; Emergency Medicine Emergency Medical Services; Emergency Provider Emergency Medicine; PCP Family Medicine
DX: R00.2 Palpitations (principal); K21.9 Gastro-esophageal reflux disease without esophagitis; K22.10 Ulcer of esophagus without bleeding; F17.210 Nicotine dependence, cigarettes, uncomplicated; R94.31 Abnormal electrocardiogram [ECG] [EKG]
CPT/HCPCS: 36415; 71046; 80048; 81001; 84484; 85025; 85610; 85730; 87077; 87086; 87088; 93005; 99284

== ENCOUNTER 2021-04-22 16:27 | Outpatient (CLI) | payer OTHER, SELFPAY ==
--- NOTE | ~2021-04-22 | CT_ITS ---
EXAMINATION: CTA chest PE protocol DATE: 04/22/2021 16:46 INDICATION: Dyspnea TECHNIQUE: Computed tomography angiography (CTA) of the chest was performed with 100 mL Omnipaque-350 intravenous contrast timed to evaluate the pulmonary arteries. Coronal maximum intensity projection 3D-reconstructions were created by the technologist. Automated exposure control and iterative reconst ruction technique were employed. Exam dose: 664.19 mGy-cm total exam DLP. COMPARISON: 04/21/2021 FINDINGS: There is no evidence of pulmonary embolism. Cardiomegaly. No pericardial or pleural effusion. No hilar or mediastinal mass lesion or lymphadenopathy. No pulmonary mass lesion or consolidation. Status post cholecystectomy. Small sliding hiatal hernia. Diverticulosis of the colon. IMPRESSION: No evidence of pulmonary embolism Reviewed, dictated and finalized at Location A. Reviewed, dictated and finalized at location A.
== END 2021-04-22 16:28 | disposition home or self-care (01) ==
PROVIDERS: PCP Family Medicine; Visit Provider Nurse Practitioner Family
DX: R00.2 Palpitations (principal); R06.00 Dyspnea, unspecified; R07.89 Other chest pain
CPT/HCPCS: 71275; Q9967

== ENCOUNTER 2021-04-29 02:05 | Emergency (ER) | payer OTHER, SELFPAY ==
[2021-04-29] VITALS (12 sets, daily range): BP systolic 134–151; BP diastolic 90–95; PULSE 63–81; RESP 14–25; TEMP 36.5–36.8; O2SAT 98–100
--- NOTE | ~2021-04-29 | XR_ITS ---
EXAMINATION: XR chest 2V EXAM DATE: 04/29/2021 02:28 INDICATION: Chest pain. TECHNIQUE: Frontal and lateral projections of the chest obtained and reviewed. There is no prior nuha dy for comparison. FINDINGS: The lungs are clear. There are no pleural effusions. The cardiomediastinal silhouette is within normal limits. There is no pneumothorax suspected. The bones and soft tissues are unremarkab le. There are cholecystectomy clips. IMPRESSION: No acute cardiopulmonary findings. Reviewed, dictated and finalized at location A.
--- NOTE | 2021-04-29 02:09 | ECG_ITS ---
Measurements Intervals [place] Rate: 74 P: 8 [place]: 179 QRS: -8 QRSD: 79 T: 16 QT: 388 QTc: 432 Interpretive Statements SINUS RHYTHM VOLTAGE CRITERIA FOR LVH BORDERLINE ECG Electronically Signed On 04-29-2021 6:53:04 CDT by Mane Thomas D.O.
--- NOTE | 2021-04-29 02:21 | ED.CHESTPAIN ---
HPI - Chest Pain General Chief Complaint: Chest Pain Stated Complaint: Cp/ rapid HR Time Seen by Provider: 04/29/21 02:20 Source: patient Mode of arrival: ambulatory Limitations: no limitations History of Present Illness HPI narrative: Patient is a 40-year-old female complaining of chest pain, substernal, sharp, 6 out of 10, nonradiating started approximately 1-1/2-hour prior to arrival. Patient also complained palpitations which states it has been going on and off for the past month. Patient was seen here in the emergency room last week, had labs EKG and CTA of her chest done. Her CTA of her chest was negative for PE. Related Data Allergies Allergy/AdvReac Type Severity Reaction Status Date / Time metronidazole Allergy Severe Nausea and Verified 04/29/21 02:32 Vomiting prochlorperazine Allergy Severe Nervousness Verified 04/29/21 02:32 cephalexin Allergy Intermediate Rash Verified 04/29/21 02:32 zolpidem Allergy Unknown Hallucinate Verified 04/29/21 02:32 Review of Systems Review of Systems: All systems reviewed & are unremarkable except as noted in HPI and below Constitutional: Constitutional: Denies body ache(s), Denies chills, Denies excessive sweating, Denies fatigue, Denies fever(s), Denies headache(s), Denies lethargy, Denies malaise, Denies weakness and Denies weight loss Eyes: Eyes: Denies blurry vision, Denies change in vision and Denies loss of vision ENT: Denies dizziness, Denies ear discharge, Denies headache(s), Denies lip swelling, Denies epistaxis, Denies nasal congestion, Denies neck pain, Denies throat swelling and Denies tongue swelling Cardiovascular: Cardiovascular: Denies chest pain with activity, Denies diaphoresis, Denies rapid heart rate, Denies edema, Denies irregular heart rhythm, Denies lightheadedness, Denies dyspnea and Denies dyspnea on exertion Respiratory: Respiratory: Denies chest congestion, Denies cough, Denies hemoptysis, Denies dyspnea and Denies dyspnea on exertion Gastrointestinal: Gastrointestinal: Denies abdominal pain, Denies melena, Denies hematochezia, Denies diarrhea, Denies nausea, Denies vomiting and Denies hematemesis Musculoskeletal: Musculoskeletal: Denies abnormal gait, Denies deformity, Denies joint swelling, Denies limited range of motion, Denies neck pain and Denies numbness Neurologic: Denies Abnormal speech present, Denies abnormal gait, Denies confusion, Denies dizziness, Denies headache(s), Denies focal weakness, Denies loss of vision, Denies numbness, Denies Other visual disturbances, Denies Sensory deficit (Neuro) and Denies weakness Psychiatric: Psychiatric: Denies confusion, Denies depression, Denies auditory hallucinations, Denies homicidal ideation and Denies suicidal ideation Endocrine: Endocrine: Denies cold intolerance, Denies excessive sweating, Denies fatigue, Denies heat intolerance and Denies palpitations Hematologic/Lymphatic: Hematologic/Lymphatic: Denies easy bleeding and Denies easy bruising Allergic/Immunologic: Allergic/Immunologic: Denies lip swelling, Denies throat swelling and Denies tongue swelling PMFSH Past Medical History Medical History Abdominal pain Anxiety Anxiety and depression BMI 28.0-28.9,adult Colon cancer screening Erosive esophagitis GERD (gastroesophageal reflux disease) Hemorrhoids Herpes labialis without complication Nausea and vomiting in adult Splenomegaly Tobacco dependence Surgical History Surgical History History of History of foot surgery History of hemorrhoidectomy History of hysterectomy History of laparoscopic cholecystectomy History of renal stent History of tonsillectomy Hx of appendectomy Family History Family History Father Hypertension Grandparent Cerebrovascular accident Family history of pancreatic cancer Diabe
[2021-04-29] MEDS: ASPIRIN 81 MG CHEWABLE TABLET 324 MG PO (02:30)
[2021-04-29 02:57] LABS: Basophils Percent Auto 0.5 % (0.2-1.2); Eosinophils Absolute Auto 0.1 K/mm3 (0-0.3); Eosinophils Percent Auto 2.4 % (0-4.4); Hematocrit 35.8 % (37.0-47.0); Immature Granulocyte Absolute 0.02 K/mm3 (0.00-0.031); Immature Granulocyte Percent A 0.4 % (0-0.5); Lymphocytes Absolute Auto 2.87 K/mm3 (0.9-3.2); Lymphocytes Percent Auto 52.4 % (18.3-44.2); Mean Corpuscular HGB Conc 33.5 g/dl (32-36); Mean Corpuscular Hemoglobin 28.7 pg (26-34); Mean Corpuscular Volume 85.6 fl (80-100); Mean Platelet Volume 10.2 fl (7.4-10.4); Monocytes Absolute Auto 0.3 K/mm3 (0.1-0.6); Monocytes Percent Auto 5.8 % (2.6-8.5); Neutrophils Absolute Auto 2.1 K/mm3 (1.3-6.7); Neutrophils Percent Auto 38.5 % (45.5-73.1); Platelet Count Result 252 k/mm3 (150-375); Red Blood Count 4.18 M/mm3 (4.2-5.4); Red Cell Distribution Width 12.9 % (11.5-14.5); White Blood Count 5.5 K/mm3 (4.5-10.0)
[2021-04-29 03:08] LABS: INR 0.9; Prothrombin Time 12.5 Seconds (11.1-14.7)
[2021-04-29 03:09] LABS: Partial Thromboplastin Time 26.4 SECONDS (22.3-36.8)
[2021-04-29 03:23] LABS: Anion Gap 8 mmol/L (8-16); Blood Urea Nitrogen 15 mg/dL (7-17); Calcium 8.7 mg/dL (8.4-10.2); Carbon Dioxide 24 mmol/L (22-30); Chloride 107 mmol/L (98-107); Estimated CRCL calculation 119 ml/min; Estimated Glomerular Filt Rate > 60; Glucose 91 mg/dL (65-110); Potassium 3.7 mmol/L (3.4-5.0); Sodium 139 mmol/L (137-145)
[2021-04-29 03:33] LABS: Troponin I < 0.012 ng/mL (0.000-0.034)
== END 2021-04-29 05:16 | disposition home or self-care (01) ==
PROVIDERS: Emergency Provider Emergency Medicine; PCP Family Medicine
DX: R07.89 Other chest pain (principal); Z87.891 Personal history of nicotine dependence
CPT/HCPCS: 36415; 71046; 80048; 84484; 85025; 85610; 85730; 93005; 99284; A9270

== ENCOUNTER 2021-05-20 14:08 | Outpatient (CLI) | payer OTHER, SELFPAY ==
--- NOTE | 2021-05-20 14:15 | ECHO_ITS ---
Patient Info Name: Amarilis Yepez Age: 41 years : 1980 Gender: Female Ht: 64 in Wt: 263 lbs BSA: 2.39 m2 HR: 69 bpm BP: 109 / 82 mmHg Technical Quality: Good Exam Date: 05/20/2021 2:27 PM Exam Location: [facility] Patient Status: Outpatient Admit Date: 05/20/2021 Staff Ordering Physician: Dada Yee NP Merchandise Carrier: LILLIE Attending Provider: Dada Yee NP Referring Physician: Joselito CARR; Exam Type: CA echo doppler color flow Study Info Indications R93.89 - ABNORMAL FINDINGS ON DIAGNOSTICE IMAGING OF OTHER Complete two-dimensional, color flow and Doppler transthoracic echocardiogram is performed. Summary 1. Complete two-dimensional, color flow and Doppler transthoracic echocardiogram is performed. 2. Left ventricular chamber dimension is mildly enlarged. 3. Left ventricular systolic function is normal, estimated at 60-65%. 4. There is moderately increased left ventricular wall thickness. 5. The left ventricular diastolic function is normal. 6. E/e' 9 is minimally elevated. 7. Left atrial chamber dimension is mildly enlarged. 8. There is trace aortic valve regurgitation. 9. There is trace mitral valve regurgitation. 10. There is mild tricuspid valve regurgitation. 11. No pulmonary hypertension, estimated pulmonary arterial systolic pressure is 28 mmHg. Left Ventricle E/e' 9 is minimally elevated. Left ventricular chamber dimension is mildly enlarged. Left ventricular systolic function is normal, estimated at 60-65%. There is moderately increased left ventricular wall thickness. The left ventricular diastolic function is normal. Right Ventricle Right ventricular chamber dimension is normal. Right ventricular systolic function is normal. Left Atria Left atrial chamber dimension is mildly enlarged. Right Atria Right atrial chamber dimension is normal. Aortic Valve The aortic valve is trileaflet. There is no aortic valve stenosis. There is trace aortic valve regurgitation. Pulmonic Valve There is no pulmonic regurgitation. Mitral Valve There is no mitral valve stenosis. There is trace mitral valve regurgitation. Tricuspid Valve There is mild tricuspid valve regurgitation. No pulmonary hypertension, estimated pulmonary arterial systolic pressure is 28 mmHg. Pericardium/Pleural There is no pericardial effusion. Inferior Vena Cava Normal inferior vena cava with >50% collapse upon inspiration consistent with normal right atrial pressure, 5 mmHg. Aorta The aortic root size at the sinus of Valsalva is normal. Left Ventricular Outflow Tract Name Value Normal LVOT 2D LVOT Diameter 1.9 cm LVOT Doppler LVOT Peak Gradient 6 mmHg LVOT Mean Gradient 3 mmHg LVOT VTI 23 cm LVOT VTI/AV VTI Ratio 0.7 LVOT Stroke Volume 66 ml LVOT CO 13.5 l/min LVOT CI 5.6 l/min/m2 Mitral Valve
== END 2021-05-20 14:09 | disposition home or self-care (01) ==
LOC: ANHCARD 14:10
PROVIDERS: PCP Family Medicine; Visit Provider Nurse Practitioner Family
DX: R93.89 Abnormal findings on diagnostic imaging of other specified body structures (principal); I51.7 Cardiomegaly
CPT/HCPCS: 93306

== ENCOUNTER → 2021-06-12 03:06 | Outpatient (CLI) | payer OTHER, SELFPAY ==
[2021-06-12 17:37] LABS: SARS-CoV-2 RNA PCR Negative
== END ==
PROVIDERS: PCP Family Medicine; Visit Provider Nurse Practitioner Family
DX: Z20.822 Contact with and (suspected) exposure to COVID-19 (principal); R09.89 Other specified symptoms and signs involving the circulatory and respiratory systems
CPT/HCPCS: C9803; U0003; U0005

== ENCOUNTER 2021-07-14 15:27 | Outpatient (CLI) | payer OTHER, SELFPAY ==
--- NOTE | ~2021-07-14 | CT_ITS ---
EXAMINATION: CT abdomen pelvis w con EXAM DATE: 07/14/2021 15:48 INDICATION: R10.32 - Left lower quadrant pain. TECHNIQUE: Spiral CT of the abdomen and pelvis was performed following intravenous injection of 100 m L Omnipaque 350. Axial, coronal and sagittal images of the abdomen and pelvis were reviewed. The do se-length product (DLP) for this examination was 1545.97 mGy-cm. The exposure was tailored according to patient size (auto mA exposure control), and iterative reconstruction (ASIR) was used as addition al dose reduction technique. Comparison is made to prior examination from 04/20/2020. FINDINGS: The liver, spleen, adrenal glands and pancreas are unremarkable. There are cholecystectomy clips. Portal and splenic veins are patent. Kidneys enhance symmetrically. There is no hydronephr osis. The uterus is not identified and has likely been surgically resected. The bladder is unremar kable. There is no retroperitoneal or pelvic lymphadenopathy. The appendix is not positively visualized. There is no pericecal inflammatory change to suggest appe ndicitis. There is small sliding gastroesophageal hiatal hernia. There is expected amount of colon ic stool. There is mild sigmoid colonic diverticulosis. There is no adjacent inflammatory change to suggest diverticulitis. No free intraperitoneal gas. The heart is normal in size. There are no pe ricardial or pleural effusions. The lung bases are unremarkable. There are no osteoblastic or osteo lytic lesions identified. IMPRESSION: 1. No acute intra-abdominal findings. 2. Mild sigmoid diverticulosis. 3. Small hiatal hernia. Reviewed, dictated and finalized at location A. ER GRINDER
[2021-07-14 16:37] LABS: Hematocrit 38.9 % (37.0-47.0); Hemoglobin 12.4 g/dL (12.0-15.0); Mean Corpuscular HGB Conc 31.9 g/dl (32-36); Mean Corpuscular Volume 90.9 fl (80-100); Mean Platelet Volume 10.7 fl (7.4-10.4); Platelet Count Result 257 k/mm3 (150-375); Red Blood Count 4.28 M/mm3 (4.2-5.4); Red Cell Distribution Width 13.2 % (11.5-14.5); White Blood Count 7.9 K/mm3 (4.5-10.0)
[2021-07-14 16:58] LABS: Alanine Aminotransferase 17 U/L (4-35); Albumin Level 4.2 g/dL (3.5-5.1); Alkaline Phosphatase 75 U/L (38-126); Amylase 55 U/L (30-110); Anion Gap 11 mmol/L (8-16); Aspartate Amino Transferase 25 U/L (14-36); Bilirubin,Total 0.2 mg/dL (0.2-1.3); Blood Urea Nitrogen 14 mg/dL (7-17); Carbon Dioxide 23 mmol/L (22-30); Chloride 105 mmol/L (98-107); Estimated Glomerular Filt Rate > 60; Glucose 84 mg/dL (65-110); Lipase 116 U/L (23-300); Sodium 139 mmol/L (137-145)
== END 2021-07-14 15:28 | disposition home or self-care (01) ==
LOC: ANHIMG 15:28
PROVIDERS: PCP Family Medicine; Visit Provider Nurse Practitioner Family
DX: R10.32 Left lower quadrant pain (principal); Z87.19 Personal history of other diseases of the digestive system
CPT/HCPCS: 36415; 74177; 80053; 82150; 83690; 85027; Q9967

== ENCOUNTER 2021-07-15 14:40 | Outpatient (CLI) | payer OTHER, SELFPAY ==
[2021-07-15 15:10] LABS: Basophils Percent Auto 0.3 % (0.2-1.2); Eosinophils Absolute Auto 0.1 K/mm3 (0-0.3); Eosinophils Percent Auto 0.9 % (0-4.4); Hematocrit 42.2 % (37.0-47.0); Hemoglobin 13.7 g/dL (12.0-15.0); Immature Granulocyte Absolute 0.03 K/mm3 (0.00-0.031); Immature Granulocyte Percent A 0.4 % (0-0.5); Mean Corpuscular HGB Conc 32.5 g/dl (32-36); Mean Corpuscular Hemoglobin 29.1 pg (26-34); Mean Corpuscular Volume 89.8 fl (80-100); Mean Platelet Volume 10.5 fl (7.4-10.4); Monocytes Absolute Auto 0.4 K/mm3 (0.1-0.6); Neutrophils Absolute Auto 4.9 K/mm3 (1.3-6.7); Neutrophils Percent Auto 66.4 % (45.5-73.1); Platelet Count Result 274 k/mm3 (150-375); White Blood Count 7.4 K/mm3 (4.5-10.0)
[2021-07-15 15:29] LABS: Magnesium 1.9 mg/dL (1.6-2.3)
[2021-07-15 15:40] LABS: Free T4 Free Thyroxine 1.12 ng/mL (0.78-2.19)
== END 2021-07-15 14:41 | disposition home or self-care (01) ==
LOC: ANHLAB 14:43
PROVIDERS: PCP Family Medicine; Referring Provider Internal Medicine Cardiovascular Disease; Visit Provider Physician Assistant Medical
DX: D64.9 Anemia, unspecified (principal); R07.89 Other chest pain; R06.00 Dyspnea, unspecified; R00.2 Palpitations
CPT/HCPCS: 36415; 83735; 84439; 84443; 85025

== ENCOUNTER 2021-07-21 05:53 | Observation (INO) | payer OTHER, SELFPAY ==
[2021-07-21] VITALS (56 sets, daily range): BP systolic 94–139; BP diastolic 57–89; PULSE 51–84; RESP 12–23; TEMP 36.2–37.1; O2SAT 95–100; BMI 46.7
--- NOTE | ~2021-07-21 | XR_ITS ---
XR chest 1V portable DATE: 07/21/2021 06:19 INDICATION: Left-sided chest pain since this morning. Nausea and vomiting. Smoker. TECHNIQUE: Portable upright AP chest on 07/21/2021 at 0616 hours COMPARISON: 04/29/2021 PA and lateral chest FINDINGS: Heart size appears normal. There is mild infiltrate or atelectasis in the right mid and primarily right lower lung zone. The lef t lung appears clear. No pleural effusion or pulmonary vascular congestion or pneumothorax. IMPRESSION: Mild infiltrate or atelectasis in the right mid and lower lung zones Reviewed, dictated and finalized at location A. [employer] IMPRESSION: Mild infiltrate or atelectasis in the right mid and lower lung zone s
--- NOTE | ~2021-07-21 | US_ITS ---
EXAMINATION: US arterial duplex LE RT DATE: 07/24/2021 09:52 INDICATION: Right groin pain after cardiac catheterization. TECHNIQUE: Multiple grayscale and Doppler ultrasound images of the right groin were obtained. COMPARISON: CT abdomen and pelvis 07/14/2021 FINDINGS: There is no significant stenosis of right common femoral artery, superficial femoral artery , or profunda femoral artery. Right common femoral vein and femoral vein are patent. IMPRESSION: 1. No pseudoaneurysm. Reviewed, dictated and finalized at location A. NICS SUPERVISOR IMPRESSION: 1. No pseudoaneurysm.
--- NOTE | 2021-07-21 06:09 | ECG_ITS ---
Measurements Intervals [place] Rate: 67 P: 17 [place]: 177 QRS: 10 QRSD: 78 T: 37 QT: 417 QTc: 442 Interpretive Statements SINUS RHYTHM LOW QRS VOLTAGE IN PRECORDIAL LEADS BASELINE ARTIFACT- I, II, AVR BORDERLINE ECG Electronically Signed On 07-21-2021 8:46:34 [employer]CH[employer] by Mane Thomas D.O.
--- NOTE | 2021-07-21 06:11 | ED.GENADULT ---
HPI - General Adult General Chief complaint: Nausea/Vomiting/Diarrhea <Brennen Villasenor MD - Last Filed: 07/21/21 06:16> Stated complaint: n/v, heart burn <Brennen Villasenor MD - Last Filed: 07/21/21 06:16> Time Seen by Provider: 07/21/21 06:06 <Brennen Villasenor MD - Last Filed: 07/21/21 06:16> History of Present Illness HPI narrative: Patient is a 41-year-old female presents the emergency department with chief complaint of chest pain. Patient reports that she has history of gastroesophageal reflux disease and also recently had an abnormal stress test patient reports this evening she woke up started having severe nausea vomiting and had pain in the epigastrium. The patient reports the symptoms are not improved by anything and reports that they are not worsened by anything <Brennen Villasenor MD - Last Filed: 07/21/21 06:16> Related Data Allergies/adverse reactions: Allergies Allergy/AdvReac Type Severity Reaction Status Date / Time metronidazole Allergy Severe Nausea and Verified 07/21/21 06:03 Vomiting prochlorperazine Allergy Severe Nervousness Verified 07/21/21 06:03 cephalexin Allergy Intermediate Rash Verified 07/21/21 06:03 zolpidem Allergy Unknown Hallucinate Verified 07/21/21 06:03 ibuprofen AdvReac Other Verified 07/21/21 06:04 <Brennen Villasenor MD - Last Filed: 07/21/21 06:16> Review of Systems Review of Systems: A 10 system review of systems was completed on the patient and is negative except for what is stated in the HPI. Nursing and ancillary documentation was reviewed. <Brennen Villasenor MD - Last Filed: 07/21/21 06:16> [facility] Past Medical History Medical History: Medical History Abdominal pain Anxiety Anxiety and depression BMI 28.0-28.9,adult Colon cancer screening Erosive esophagitis GERD (gastroesophageal reflux disease) Hemorrhoids Herpes labialis without complication Nausea and vomiting in adult Splenomegaly Tobacco dependence <Brennen Villasenor MD - Last Filed: 07/21/21 06:16> Surgical History Surgical History: Surgical History History of History of foot surgery History of hemorrhoidectomy History of hysterectomy History of laparoscopic cholecystectomy History of renal stent History of tonsillectomy Hx of appendectomy <Brennen Villasenor MD - Last Filed: 07/21/21 06:16> Family History Family History: Family History Father Hypertension Grandparent Cerebrovascular accident Family history of pancreatic cancer Diabetes mellitus Family history of pancreatic disease Unknown Diabetes mellitus Mother No problems noted. Sibling No problems noted. <Brennen Villasenor MD - Last Filed: 07/21/21 06:16> Social History Social History: Social History Smoking packs per day: 0.5 Smoking cigarettes per day: 10.0 Years smoked: 7 Smoking pack-years: 3.50 Tobacco type: cigarettes Second hand tobacco smoke exposure: No Alcohol intake: current Substance use: former Substance use type: marijuana Gender identity (if verbalized by the patient): Female Spiritual care concerns: No <Brennen Villasenor MD - Last Filed: 07/21/21 06:16> Exam Narrative: GENERAL: Well-appearing, well-nourished, and in no acute distress. HEAD: Normocephalic, atraumatic. EYES: PERRLA and EOMI. ENT: Nares clear, no rhinorrhea or epistaxis. Mucous membranes moist. NECK: Supple. CHEST: Clear to auscultation. No respiratory distress. HEART: Regular rate and rhythm. No murmur heard. Normal peripheral pulses. ABDOMEN: Soft, nontender, nondistended, normal active bowel sounds. EXTREMITIES: Normal
[2021-07-21] MEDS: ONDANSETRON INJ 4 MG/2 ML VIAL IV PUSH ×2 (06:16→12:20)
[2021-07-21] MEDS: BELLADONNA ALK/PHENOB ELIX 10 ML, MAG HYDROX/ALUMINUM HYD/SIMETH 30 ML, LIDOCAINE HCL 2... PO (06:16)
[2021-07-21] MEDS: PANTOPRAZOLE SODIUM IV 40 MG VIAL IV PUSH (06:16)
[2021-07-21] MEDS: ASPIRIN 81 MG CHEWABLE TABLET 324 MG PO (06:17)
[2021-07-21 06:24] LABS: Basophils Percent Auto 0.7 % (0.2-1.2); Eosinophils Absolute Auto 0.1 K/mm3 (0-0.3); Eosinophils Percent Auto 2.3 % (0-4.4); Hematocrit 41.1 % (37.0-47.0); Hemoglobin 13.5 g/dL (12.0-15.0); Immature Granulocyte Absolute 0.02 K/mm3 (0.00-0.031); Immature Granulocyte Percent A 0.3 % (0-0.5); Lymphocytes Absolute Auto 2.47 K/mm3 (0.9-3.2); Lymphocytes Percent Auto 41.4 % (18.3-44.2); Mean Corpuscular HGB Conc 32.8 g/dl (32-36); Mean Corpuscular Hemoglobin 29.7 pg (26-34); Mean Corpuscular Volume 90.5 fl (80-100); Mean Platelet Volume 10.4 fl (7.4-10.4); Monocytes Absolute Auto 0.4 K/mm3 (0.1-0.6); Monocytes Percent Auto 6.5 % (2.6-8.5); Neutrophils Absolute Auto 2.9 K/mm3 (1.3-6.7); Neutrophils Percent Auto 48.8 % (45.5-73.1); Platelet Count Result 304 k/mm3 (150-375); Red Blood Count 4.54 M/mm3 (4.2-5.4)
--- NOTE | 2021-07-21 06:25 | PC.NURSE ---
Patient aware of need for urine specimen. Patient states she is unable to provide one at this time. Patient states she will try to provide a specimen in a few minutes.
[2021-07-21 06:29] LABS: Alanine Aminotransferase 16 U/L (4-35); Albumin Level 4.5 g/dL (3.5-5.1); Alkaline Phosphatase 75 U/L (38-126); Anion Gap 8 mmol/L (8-16); Aspartate Amino Transferase 25 U/L (14-36); Bilirubin,Total 0.3 mg/dL (0.2-1.3); Blood Urea Nitrogen 16 mg/dL (7-17); Calcium 9.4 mg/dL (8.4-10.2); Carbon Dioxide 29 mmol/L (22-30); Chloride 106 mmol/L (98-107); Estimated CRCL calculation 106 ml/min; Estimated Glomerular Filt Rate > 60; Glucose 92 mg/dL (65-110); Lipase 130 U/L (23-300); Potassium 4.4 mmol/L (3.4-5.0); Sodium 143 mmol/L (137-145)
[2021-07-21 06:45] LABS: NT Pro B Type Natriuretic Pept 117 pg/mL (5-100); Troponin I < 0.012 ng/mL (0.000-0.034)
[2021-07-21 06:59] LABS: INR 0.9; Prothrombin Time 12.4 Seconds (11.1-14.7)
[2021-07-21] MEDS: NITROGLYCERIN SL 0.4 MG TABLET SUBLINGUAL ×4 (07:02→20:44)
--- NOTE | 2021-07-21 07:03 | PC.NURSE ---
Patient states the burning is better but the left chest pain is not. Patient given 1st dose of nitro at 0702.
--- NOTE | 2021-07-21 07:06 | PC.NURSE ---
Patient's 2nd dose of nitro given.
--- NOTE | 2021-07-21 07:11 | PC.NURSE ---
Patient states no relief of pain, so 3rd and final dose of nitro given.
[2021-07-21 07:32] LABS: Add Urine Microscopic? YES; Appearance Urine Cloudy (Clear); Bacteria Urine Trace /hpf; Bilirubin Urine Negative (Negative); Blood Urine Negative (Negative); Color Urine Yellow (Yellow); Glucose Urine UA Negative (Negative); Ketones Urine Negative (Negative); Leukocyte Esterase Ur 1+ LEU/UL (Negative); Mucus Urine Rare /lpf; Nitrate Urine Negative (Negative); Protein Urine Negative (Negative); RBC Urine 0-2 /hpf (0-2); Specific Grav Ur 1.024 (1.001-1.035); Squamous Epithelial Cell Urine Moderate /hpf (Few); Transitional Epi Cells Urine Rare /hpf (None Seen); Urobilinogen Urine Negative mg/dL (<2.0); WBC Urine 0-3 /hpf
[2021-07-21 07:40] LABS: Partial Thromboplastin Time 27.9 SECONDS (22.3-36.8)
--- NOTE | 2021-07-21 07:42 | PC.NURSE ---
Pt stated her stabbing chest pain has not been relieved, Dr. iPña aware and will go speak with patient
[2021-07-21 10:04] LABS: Troponin I < 0.012 ng/mL (0.000-0.034)
--- NOTE | 2021-07-21 12:02 | ECG_ITS ---
Measurements Intervals [place] Rate: 56 P: 20 MI: 186 QRS: 16 QRSD: 81 T: 40 QT: 468 QTc: 452 Interpretive Statements SINUS BRADYCARDIA INCOMPLETE RIGHT BUNDLE BRANCH BLOCK BORDERLINE ECG Electronically Signed On 07-21-2021 14:45:33 CHIEF RECORDIST by Mane Thomas D.O.
[2021-07-21] MEDS: MORPHINE SULFATE (*CRX) 4 MG/ML INJ IV PUSH (12:20)
--- NOTE | 2021-07-21 12:21 | PC.NURSE ---
Dr. Piña at bedside updated pt of plan of care
--- NOTE | 2021-07-21 13:00 | PM.IMHP ---
H&P: HPI History of Present Illness Date/Time: 07/21/21 13:00 Chief Complaint: Chest pain. Narrative: This is a 41-year-old female with history of GERD, depression, and anxiety who presented to the emergency department earlier today via private vehicle from home for evaluation of chest pain. She was awakened from sleep this morning with left anterior chest pain and epigastric pain radiating somewhat into the neck which she describes a burning pain similar to her indigestion but she also reports mild heaviness. She had severe nausea with that as well with 2 episodes of nonbloody and nonbilious emesis. She has had similar pains intermittently since December 2020 and in February she had an endoscopy per Dr. Nettles which showed reflux esophagitis and hiatal hernia. Since that time she has been taking omeprazole with some benefit however she continues to have intermittent chest pain. She then began experiencing shortness of breath with exertion, for instance walking up a flight of steps, and a chest CTA taken on 04/22/2021 was unremarkable aside from cardiomegaly. Subsequent echocardiogram showed a mildly enlarged left ventricular chamber with normal systolic function EF estimated 60 to 65% as well as moderately increased left ventricular wall thickness and normal diastolic function. She was referred to cardiology for further evaluation and a stress echocardiogram on 07/15/2021 showed hypokinetic LV segments to include the basal inferior segment and the basal inferoseptal segment and she is scheduled for cardiac catheterization next Wednesday. At the time my evaluation she reports feeling a bit better with a GI cocktail however she still has some left anterior chest pain that seems to be reproducible on exam. She denies syncope, near syncope, diaphoresis, pleuritic pain, and resting shortness of breath. Review of Systems Review of Systems: 12 systems were reviewed. No fever, chills, or sweats. No recent cold or flu symptoms. No sick contacts. She denies cough. No orthopnea, PND, or lower extremity edema. She denies hematemesis. No melena. No history of venous thromboembolism. Patient reports that she has gained about 70 pounds within the last year which she attributes to increasing stress, depression, and sedentary lifestyle. No suicidal ideation. Her thyroid has been checked and she reports that it was within normal limits recently except as documented, all other systems were reviewed and are negative. [facility] Past Medical History Medical History (Updated 07/21/21 @ 13:42 by Rose Perez PA-C) Anxiety and depression Erosive esophagitis (02/07/21) Gastroesophageal reflux disease Hemorrhoids Herpes labialis without complication Morbid obesity Splenomegaly Surgical History Surgical History (Updated 07/21/21 @ 13:34 by Rose Perez PA-C) History of appendectomy History of History of foot surgery Shaving of bone spur. History of hemorrhoidectomy History of hysterectomy History of laparoscopic cholecystectomy History of renal stent History of tonsillectomy Family History Family History Father Hypertension Grandparent Cerebrovascular accident Family history of pancreatic cancer Diabetes mellitus Family history of pancreatic disease Unknown Diabetes mellitus Mother No problems noted. Sibling No problems noted. Social History Social History (Updated 07/21/21 @ 13:37 by Rose Perez PA-C) Social History: Surrogate decision-maker: Alondra Rice, sister. CODE STATUS: Full code. Smoking packs per day: 1.5 Smoking cigarettes per day: 30.0 Years smoked: 10 Smoking pack-years: 15.00 Tobacco type: cigarettes Second hand tobacco smoke exposure: No Additional smoking assessment comments: Patient quit smoking in fall 2020. Alcohol intake: current Alcohol use details: Drinks 5-6 shots a week. Substance use: current [facility]
[2021-07-21 14:48] LABS: Troponin I < 0.012 ng/mL (0.000-0.034)
--- NOTE | 2021-07-21 15:00 | PC.NURSE ---
Informed pt that she is admitted and has a room will be taking her up shortly
--- NOTE | 2021-07-21 18:40 | ADMGEN ---
This patient, Amarilis Yepez, was admitted to IMU Room 201-01 at 1642. Patient/family oriented to hospital policies and general routines including ID bracelet, bed and alarms, visiting hours, pain management, procedures, bathroom and other care routines, personal items, smoking policy, room service/diet, and visiting hours. Information on how to activate the Rapid Response Team has been discussed. Patient/Family are encouraged to report perceived risks to care and to ask questions if they do not understand what they are told or what they should do.
[2021-07-21 19:01] LABS: Troponin I < 0.012 ng/mL (0.000-0.034)
[2021-07-21] MEDS: buPROPion HCL SR (12 HR) 150 MG TAB PO (20:29)
[2021-07-21] MEDS: PANTOPRAZOLE 40 MG TABLET PO (20:29)
--- NOTE | 2021-07-21 21:00 | ECG_ITS ---
Measurements Intervals [place] Rate: 58 P: 47 MA: 180 QRS: 39 QRSD: 85 T: 53 QT: 438 QTc: 433 Interpretive Statements SINUS BRADYCARDIA BORDERLINE ECG Electronically Signed On 07-22-2021 7:47:04 DIRECTOR ASSET by Mane Thomas D.O.
[2021-07-21] MEDS: CALCIUM CARBONATE (TUMS) 500 MG (200 MG ELEMENTAL) PO (21:50)
[2021-07-22] VITALS (23 sets, daily range): BP systolic 102–135; BP diastolic 57–88; PULSE 54–77; RESP 16–22; TEMP 35.9–37; O2SAT 96–100
[2021-07-22] MEDS: ACETAMINOPHEN 325 MG TABLET 650 MG PO ×2 (00:06→21:51)
[2021-07-22 05:37] LABS: Anion Gap 8 mmol/L (8-16); Blood Urea Nitrogen 15 mg/dL (7-17); Calcium 9.1 mg/dL (8.4-10.2); Carbon Dioxide 24 mmol/L (22-30); Chloride 103 mmol/L (98-107); Cholesterol 203 mg/dL (0-200); Estimated CRCL calculation 121 ml/min; Estimated Glomerular Filt Rate > 60; Glucose 88 mg/dL (65-110); HDL Direct 40 mg/dL; Magnesium 1.9 mg/dL (1.6-2.3); Potassium 3.6 mmol/L (3.4-5.0); Sodium 135 mmol/L (137-145); Triglycerides 140 mg/dL (<150)
[2021-07-22 05:48] LABS: LDL Cholesterol Direct 123 mg/dL
--- NOTE | 2021-07-22 09:12 | PM.CNCAR ---
Assessment and Plan Assessment and plan (1) Chest pain: Code(s): R07.9 - Chest pain, unspecified Status: Acute Assessment and Plan: atypical and probably GI related but she does have an abnormal stress test with symptoms of dyspnea on exertion. Will keep her NPO. will schedule a coronary angiogram for today. Risks, benefits alternatives are discussed and she is agreeable. Aspirin 81 mg p.o. daily to be started. (2) Erosive esophagitis: Onset Date: 02/07/21 Code(s): K22.10 - Ulcer of esophagus without bleeding Status: Acute Assessment and Plan: pantoprazole 40 mg B.i.d.. Probably needs GI evaluation also (3) Abnormal stress test: Code(s): R94.39 - Abnormal result of other cardiovascular function study Status: Acute Assessment and Plan: with inferior and basal inferoseptal hypokinesis which is stress induced. (4) VAZQUEZ (dyspnea on exertion): Code(s): R06.00 - Dyspnea, unspecified Status: Acute Assessment and Plan: Ischemia versus deconditioning versus weight versus multifactorial. Dietary and lifestyle modification weight loss. (5) Depression with anxiety: Code(s): F41.8 - Other specified anxiety disorders Status: Acute History of Present Illness History of Present Illness Consult date/time: 07/22/21 09:12 Requesting physician: Neymar Piña MD Consult reason: chest pain Reason For Visit: Chest pain Narrative: Date of service 07/22/2021 Reason consultation: Chest pain Ordering provider: Dr. Piña History: Patient is a 41-year-old female who I saw as an outpatient back in May. This is a consultation because of cardiomegaly, abnormal echocardiogram and dyspnea. Patient started feeling poorly a couple weeks after her U[place] U[place] vaccine. This was back in December. She does have a history of heartburn and has reflux esophagitis also as well as a hiatal hernia. Because continued symptoms of dyspnea with exertion, she was sent for a exercise stress echocardiogram which did show some basal inferior inferoseptal hypokinesis induced with exercise. Her previous echocardiogram did show moderate LVH with left ventricular enlargement but with preserved ejection fraction. Yesterday she woke up at about 330 morning with burning in her chest which radiated towards left-sided. She had some nausea and vomiting also and shortness of breath. It lasted for few hours and she came to the hospital for further evaluation. She was given a GI cocktail with improvement in her burning symptoms. Because of her previously abnormal stress test she was already scheduled for cardiac catheterization next week. Because of her symptoms and persistent dyspnea with exertion, she was kept in the hospital for rule out myocardial infarction. Patient has not been having any recent syncope or presyncope. No paroxysmal nocturnal dyspnea orthopnea. She has been having some dyspnea with exertion still but feels that her dyspnea with exertion has been improving. She was given nitroglycerin sublingually which did not relieve any symptoms. Review of Systems Review of Systems: All systems reviewed & are unremarkable except as noted in HPI and below Constitutional: Constitutional: Denies weakness Eyes: Eyes: Denies blurry vision Cardiovascular: Cardiovascular: Reports chest pain Respiratory: Respiratory: Reports dyspnea on exertion Gastrointestinal: Gastrointestinal: Reports heartburn, Reports nausea and Reports vomiting Genitourinary: Genitourinary: Denies flank pain Musculoskeletal: Musculoskeletal: Denies neck pain Integumentary/Breasts: Skin/Breast: Denies dry skin Neurologic: Denies headache(s) and Denies numbness Psychiatric: Psychiatric: Denies anxiety and Denies behavioral changes Endocrine: Endocrine: Denies excessive sweating Hematologic/Lymphatic: Hematologic/Lymphatic: Denies easy bleeding Allergic/Immunologic: Allergic/Im
[2021-07-22] MEDS: ASPIRIN 81 MG CHEWABLE TABLET PO (10:11)
--- NOTE | 2021-07-22 11:16 | WPDHPUPDATE1 ---
History and Physical Update Update Date/Time: 07/22/21 11:16 History and Physical has been reviewed, including an updated exam of the patient. There are NO changes in the patient's condition. Risks, benefits, and alternatives have been discussed and questions answered. Patient agrees to proceed with procedure.
--- NOTE | 2021-07-22 11:16 | WPDMODSED ---
Moderate Sedation Note-Pt Data Patient Data Allergies Allergy/AdvReac Type Severity Reaction Status Date / Time metronidazole Allergy Severe Nausea and Verified 07/21/21 06:03 Vomiting prochlorperazine Allergy Severe Nervousness Verified 07/21/21 06:03 cephalexin Allergy Intermediate Rash Verified 07/21/21 06:03 zolpidem Allergy Unknown Hallucinate Verified 07/21/21 06:03 ibuprofen AdvReac Other Verified 07/21/21 06:04 Home Medications Medication Instructions Recorded Confirmed Type omeprazole 40 mg capsule,delayed 40 mg PO BID #60 cap 02/07/21 07/21/21 Rx release bupropion HCl 150 mg tablet,12 hr 150 mg PO BID #60 tablet 07/07/21 07/21/21 Rx sustained-release Current Medications: Active Medications Acetaminophen (Acetaminophen 325 Mg Tablet) 650 mg PO Q6H PRN PRN Reason: Pain (1-3) or fever Last Admin: 07/22/21 00:06 Dose: 650 mg Documented by: Aspirin (Aspirin 81 Mg Chewable Tablet) 81 mg PO DAILY@0800 [facility] Last Admin: 07/22/21 10:11 Dose: 81 mg Documented by: Bupropion HCl (Bupropion Hcl Sr (12 Hr) 150 Mg Tab) 150 mg PO Q12HR [facility] Last Admin: 07/21/21 20:29 Dose: 150 mg Documented by: Calcium Carbonate (Calcium Carbonate (Tums) 500 Mg (200 Mg Elemental)) 200 mg PO Q6H PRN PRN Reason: Indigestion Last Admin: 07/21/21 21:50 Dose: 200 mg Documented by: Nitroglycerin (Nitroglycerin Sl 0.4 Mg Tablet) 0.4 mg SUBLINGUAL Q5MIN PRN PRN Reason: Chest Pain Last Admin: 07/21/21 20:44 Dose: 0.4 mg Documented by: Ondansetron HCl (Ondansetron Inj 4 Mg/2 Ml Vial) 4 mg IV PUSH Q4H PRN PRN Reason: Nausea Pantoprazole Sodium (Pantoprazole 40 Mg Tablet) 40 mg PO Q12HR [facility] Last Admin: 07/21/21 20:29 Dose: 40 mg Documented by: Sedation/Anesthesia: No previous sedation/anesthesia problems (including family history). [facility] Past Medical History Medical History Anxiety and depression Erosive esophagitis (02/07/21) Gastroesophageal reflux disease Hemorrhoids Herpes labialis without complication Morbid obesity Splenomegaly Surgical History Surgical History History of appendectomy History of History of foot surgery Shaving of bone spur. History of hemorrhoidectomy History of hysterectomy History of laparoscopic cholecystectomy History of renal stent History of tonsillectomy Family History Family History Father Hypertension Grandparent Cerebrovascular accident Family history of pancreatic cancer Diabetes mellitus Family history of pancreatic disease Unknown Diabetes mellitus Mother No problems noted. Sibling No problems noted. Social History Social History Social History: Surrogate decision-maker: Alondra Rice, sister. CODE STATUS: Full code. Smoking packs per day: 1.5 Smoking cigarettes per day: 30.0 Years smoked: 15 Smoking pack-years: 22.50 Smoking status: Former smoker Tobacco type: cigarettes Second hand tobacco smoke exposure: No Additional smoking assessment comments: Patient quit smoking in fall 2020. Alcohol intake: current Alcohol use details: Drinks 5-6 shots a week. Substance use: current Substance use type: marijuana Last use: 07/19/21 Additional living arrangements comments: The patient lives in [place]. She has 5 children currently living with their father. Additional occupation/education comments: Works in sales. Spiritual care concerns: No Mod Sed Physical Exam Physical Exam Pre Procedural Exam: Normal: Airway Hours since solid foods: 12 Hours since liquid intake: 12 Mallampati Classification: class II Internal Medicine - PN: Obj Da Vital Signs Vital Signs: Vital Signs - 24 hr 07/21/21 11:18 07/21/21 11:30 07/21/21 11:31 Temperat
--- NOTE | 2021-07-22 11:20 | SUR.PHASEII ---
ARRIVES TO [facility] 4 VIA STRETCHER FROM CCL. SCHEDULED LHC DELAYED DUE TO STEMI CALL. PT. WAS BEING PREPPED FOR LHC ON TABLE, HAD RECEIVED 1MG VERSED IV AND 25MCG FENTANYL IV. NO GROIN STICKS INITIATED. AWAKE AND ALERT ON ARRIVAL TO [facility], DENIES CP OR SOB. VSS. DR. GONZALEZ TO BEDSIDE TO EXPLAIN DELAY. VSS. WILL CONTINUE TO MONITOR. BP 118/86, MONITOR SB 56, SAT 97% ON RA, RESP RATE 16/MIN. TEMP 97 DEG F.
--- NOTE | 2021-07-22 11:27 | P.PNCROSS_ITS ---
Event Note Event Note Event Note: Patient was brought to the cook house laborer for cardiac catheterization. While patient was getting prepped, I was called by the emergency room for another patient with cardiac emergency which needed to come to the cook house laborer emergently. Therefore, the patient was taken off the cath table and her procedure will be performed later. I personally spoke with the patient and she verbalized understanding.
--- NOTE | 2021-07-22 11:43 | SUR.PHASEII ---
NO CHANGE IN CONDITION. IMPROVEMENT INTERN RAMILA SCHNEIDER AND CCL DIRECTOR, MEL BROOKS RN AWARE OF PROCEDURE NOT INITIATED AND DELAYED. TO BEDSIDE TO SPEAK TO PT. VSS. FULLY AWAKE AND ALERT. DENIES CP OR SOB. BP 120/82, MONITOR 56 SB, SAT 100% ON RA, RESP 16/MIN. AT BASELINE.
--- NOTE | 2021-07-22 12:00 | SUR.PHASEII ---
REPORT CALLED TO BRAYDEN JENNINGS RN IN IMU, PT'S PRIMARY NURSE. AWARE PROCEDURE NOT STARTED AND IS DELAYED, BUT DID RECEIVE SOME SEDATION MEDICATION IN CCL IN PREP. TO KEEP PT. NPO IN EVENT CATH CAN BE DONE TODAY. REMAINS WITHOUT C/O PAIN OR SOB. VSS. BP 107/64, MONITOR SB 56, SAT 100% ON RA, RESP 16/MIN. FULLY AWAKE AND ALERT. WILL RETURN PT. TO IMU ROOM 201 VIA STRETCHER.
--- NOTE | 2021-07-22 12:15 | SUR.PHASEII ---
RETURNED TO [address] IN IM[address] STRETCHER[address] CONCEPCION TO BEDSIDE. LHC TO BE CANCELLED FOR TODAY AND RESCHEDULED FOR TOMORROW. PT. MAY EAT. UPDATED RN BRAYDEN JENNINGS.
--- NOTE | 2021-07-22 16:23 | P.PCNCC_ITS ---
Cardiac Cath Procedure Note Date of procedure:: 07/22/21 Performing physician:: Yuriy Wheatley MD Indication:: symptoms of chest pain felt to be atypical of angina abnormal stress echo Brief clinical history:: this is a 41-year-old patient seen by 1 of my partners we experiencing symptoms of chest discomfort that are largely atypical of angina. Having said that a stress echocardiogram be done as an outpatient was abnormal suggesting inferior ischemia. In this setting an angiogram has been recommended. Procedure Procedure performed:: Left ventriculogram coronary angiogram Angio-Seal to right femoral artery Sedation/Medication given:: fentanyl 100 mg Versed 2 mg case start time 4:00 p.m. case end time 4:17 p.m. sedation provided by Angelina Rosario RN, trained observer Access site:: right femoral artery Estimated blood loss:: 15-20 cc Procedure note:: patient was brought to the cardiac catheterization lab in the postabsorptive state the right femoral triangle was prepared and draped in the usual fashion. Anesthesia was provided with 1% lidocaine infiltrated locally. Using the modified Seldinger technique the right common femoral artery was punctured and a 5 Singaporean vascular sheath was placed. After this left heart catheterization was carried out. A 5 Singaporean angled pigtail catheter was used to measure left-sided hemodynamics and to inject LV g in the CABRERA projection. Following this a standard 5 [place]an FL4 catheter was used to engage inject the left coronary artery. A 5 [place]an JR4 catheter was used to engage and inject the right coronary artery. The procedure was then terminated the angiograms were reviewed and the right femoral artery was injected using the sheath. After this a 6 [place]an Angio-Seal device was used to provide hemostasis. There was a good hemostatic result the patient left the feed mill lab technician with no sign of any groin hematoma nor any other procedural complications. Findings:: Hemodynamics: Central aortic pressure was 126 over 76 left ventricle 128/0 end-diastolic pressure 16 is no gradient on pullback across the aortic valve. Left ventricle: The LV is normal in size all segments contract appropriately there were no regional wall motion abnormalities in the ejection fraction is visually estimated to be 50%. The left main coronary artery is nicely patent. The left anterior descending is a moderate caliber artery extending down to the apex the LAD and its branches are smooth and angiographically unremarkable. The circumflex is a medium caliber artery giving rise to the marginal branches the circumflex system is smooth and angiographically free of disease. The right coronary artery is large in caliber and dominant to the posterior circulation the right coronary artery is smooth and angiographically free of disease. Conclusion:: 1. Right coronary dominant circulation with no evidence of coronary disease 2. preserved left ventricular systolic function 3. based on these findings symptoms appear to be nonischemic in the stress test appears to be a false-positive. Yuriy Wheatley MD FACC
--- NOTE | 2021-07-22 16:27 | SUR.PHASEII ---
DR. ANTONIO ABLE TO DO LHC ON PT. TODAY. WAS KEPT NPO EARLIER. RETURNS NOW VIA STRETCHER S/P LHC TO POST ADOPTION COORDINATOR 4. AWAKE AND ALERT, DENIES CP OR SOB. R. GROIN SITE PUNCTURE SEALED WITH ANGIOSEAL CLOSURE; SITE COVERED W/ C/D/I GAUZE AND TEGADERM DRESSING. SITE SOFT, NONTENDER. NO BLEEDING OR HEMATOMA NOTED. REVIEWED BEDREST ACTIVITY RESTRICTIONS AND MONITORING OF R. GROIN SITE. VOICED UNDERSTANDING. R. PEDAL PULSE PALP STRONG. IVF'S RUNNING TO PATENT IV SITE L. AC ORDERED. VSS. BEDREST X 2 HOURS POST LHC, UP AT 1830. WILL CONTINUE TO MONITOR.
[2021-07-22] MEDS: SODIUM CHLORIDE 0.9% IV 1,000 ML 125 ML IV CONT (17:30)
--- NOTE | 2021-07-22 17:30 | SUR.PHASEII ---
PHASE II RECOVERY COMPLETE. NO CHANGE TO [facility] SITE. VSS. BEDREST CONTINUES UNTIL 1830. REPORT CALLED TO BRAYDEN Garza RN IN IMU AT 1715. NOW RETURNS VIA STRETCHER TO IMU [address] [facility] OBSERVED W/ BRAYDEN Garza RN UPON RETURN.
--- NOTE | 2021-07-22 18:17 | PM.IMPN ---
Progress Note: A&P Assessment and Plan (1) Chest pain: Code(s): R07.9 - Chest pain, unspecified Status: Acute Assessment and Plan: Stress echocardiogram 07/15/2021 showed hypokinetic segments of the LV including the basal inferior segment and the basal inferoseptal segment with an EF of 70%. Status post cardiac catheterization on 07/22/2021 negative Will consult GI for further evaluation (2) Gastroesophageal reflux disease: Code(s): K21.9 - Gastro-esophageal reflux disease without esophagitis Status: Acute Assessment and Plan: An ongoing issue for the patient for which she has been taking omeprazole. She received an IV dose of pantoprazole and a GI cocktail in the emergency department with some improvement. GI consultation (3) Erosive esophagitis: Onset Date: 02/07/21 Code(s): K22.10 - Ulcer of esophagus without bleeding Status: Acute Assessment and Plan: Noted on EGD on 02/07/2021. Continue PPI. (4) Morbid obesity: Code(s): E66.01 - Morbid (severe) obesity due to excess calories Status: Acute Assessment and Plan: Patient reports a 70 pound weight gain in the past 1 year or so. She understands the importance of making lifestyle changes given this healthcare scare and she seems motivated. TSH on 05/26/2021 was within normal limits. (5) Anxiety and depression: Code(s): F41.9 - Anxiety disorder, unspecified; F32.9 - Major depressive disorder, single episode, unspecified Status: Acute Assessment and Plan: The patient has longstanding issues with depression and anxiety and seems to have had more stress relatively recently. She denies harmful thoughts. Would benefit from outpatient therapy for stress management. Continue bupropion. Subjective Date/time seen: 07/22/21 18:17 Interval history: Seen after the catheterization which came back negative. Chest pain has been recurrent since several months. Has a history of severe GERD been on medication. Had EGD in November would like to see GI for further evaluation. Review of Systems Review of Systems: All systems reviewed & are unremarkable except as noted in HPI and below (HPI) Exam Narrative: General: Well-developed female with morbid obesity, not in acute distress HEENT: PERRL, EOMI. Sclerae anicteric. Tacky mucous membranes. Oropharynx is crowded. Neck: Supple. No adenopathy, thyromegaly, or JVD. Respiratory: Respirations are even and nonlabored lungs are clear to auscultation bilaterally. Cardiovascular: Regular rate and rhythm with S1-S2. Gastrointestinal: Abdomen is soft, distended Skin: Warm and dry. No rash or lesions on limited exam. Extremities: No cyanosis, clubbing, or significant edema. Radial and pedal pulses intact. Neurological: Alert. Cranial nerves 2-12 are grossly intact. No gross focal deficits to casual conversation. Psychiatric: Pleasant and cooperative. Appropriate mood and flat affect. Objective Data Vital Signs Vital Signs: Vital Signs - 24 hr 07/21/21 20:00 07/21/21 20:42 07/21/21 22:00 Temperature 97.7 F Pulse Rate 68 61 Respiratory Rate 20 Blood Pressure 114/62 Pulse Oximetry 98 97 07/21/21 23:09 07/22/21 00:00 07/22/21 02:00 Temperature 97.1 F L Pulse Rate 62 61 68 Respiratory Rate 22 H Blood Pressure 116/77 Pulse Oximetry 100 07/22/21 04:00 07/22/21 06:00 07/22/21 06:55 Temperature 97.6 F 98.6 F Pulse Rate 65 64 66 Respiratory Rate 20 20 Blood Pressure 104/66 103/57 L Pulse Oximetry 99 100 07/22/21 12:00 07/22/21 16:30 07/22/21 16:45 Temperature 98.1 F 96.8 F L Pulse Rate 59 L 56 L 55 L Respiratory Rate 16 16 16 Blood Pressure 110/74 128/73 131/74 Pulse Oximetry 100 98 100 07/22/21 17:00 07/22/21 17:15 Temperature Pulse Rate 54 L 54 L Respiratory Rate 16 16 Blood Pressure 135/80 134/78 Pulse Oximetry 97 96 Intake/Output Intake/Output: Intake & Output 07/19/21
--- NOTE | 2021-07-22 20:07 | PC.NURSE ---
1055- to [facility] for procedure; returned at 1230 to room - procedure delayed; remains NPO for procedure @ 1600 today. Pt verbalized understanding
--- NOTE | 2021-07-22 20:25 | PC.NURSE ---
173- pt received from [facility]- post cardiac cath- right groin with angioseal- site soft- no hematoma or bleeding- +3 right pedal pulse; pt on Bedrest until 1829- pt verbalized understanding- IVF infusing NS 125 cc/hr as ordered for post procedure
[2021-07-22] MEDS: buPROPion HCL SR (12 HR) 150 MG TAB PO (21:51)
[2021-07-22] MEDS: PANTOPRAZOLE 40 MG TABLET PO (21:51)
[2021-07-22] MEDS: HYDROcodone/acetaminophen (*CRX) 5-325 MG TABLET 1 TAB PO (23:08)
[2021-07-23] VITALS (14 sets, daily range): BP systolic 107–144; BP diastolic 59–86; PULSE 54–84; RESP 16–22; TEMP 36.2–37; O2SAT 96–99
[2021-07-23] MEDS: ONDANSETRON INJ 4 MG/2 ML VIAL IV PUSH ×2 (09:14→18:16)
[2021-07-23] MEDS: ASPIRIN 81 MG CHEWABLE TABLET PO (10:00)
[2021-07-23] MEDS: buPROPion HCL SR (12 HR) 150 MG TAB PO ×2 (10:00→20:54)
[2021-07-23] MEDS: PANTOPRAZOLE 40 MG TABLET PO ×2 (10:00→20:54)
--- NOTE | 2021-07-23 11:15 | PM.PNCARD ---
Progress Note: A&P Assessment and Plan (1) Chest pain: Code(s): R07.9 - Chest pain, unspecified Status: Acute Assessment and Plan: Noncardiac. Cardiac catheterization showed no obstructive coronary disease. Will discontinue aspirin. Discontinue rn ent. Patient may transfer to medicine or be discharged home. No further workup needed. GI evaluation as previously recommended is pending (2) Erosive esophagitis: Onset Date: 02/07/21 Code(s): K22.10 - Ulcer of esophagus without bleeding Status: Acute Assessment and Plan: pantoprazole 40 mg B.i.d.. (3) Abnormal stress test: Code(s): R94.39 - Abnormal result of other cardiovascular function study Status: Acute Assessment and Plan: False-positive (4) VAZQUEZ (dyspnea on exertion): Code(s): R06.00 - Dyspnea, unspecified Status: Acute Assessment and Plan: Likely deconditioning versus weight versus multifactorial. Dietary and lifestyle modification weight loss. (5) Depression with anxiety: Code(s): F41.8 - Other specified anxiety disorders Status: Acute Subjective Date/time seen: 07/23/21 11:15 Interval history: 41-year-old admitted for chest pain. Abnormal stress test as outpatient. Date of service 07/23/2021: Feels well. No chest pain or shortness breath at this point. Right groin was tender last night but is stable now Review of Systems Review of Systems: All systems reviewed & are unremarkable except as noted in HPI and below Constitutional: Constitutional: Denies excessive sweating, Denies headache(s) and Denies weakness Eyes: Eyes: Denies blurry vision ENT: Denies headache(s) and Denies neck pain Cardiovascular: Cardiovascular: Reports chest pain and Reports dyspnea on exertion Respiratory: Respiratory: Reports dyspnea on exertion Gastrointestinal: Gastrointestinal: Reports heartburn, Reports nausea and Reports vomiting Genitourinary: Genitourinary: Denies flank pain Musculoskeletal: Musculoskeletal: Denies neck pain and Denies numbness Integumentary/Breasts: Skin/Breast: Denies dry skin Neurologic: Denies behavioral changes, Denies headache(s), Denies numbness and Denies weakness Psychiatric: Psychiatric: Denies anxiety and Denies behavioral changes Endocrine: Endocrine: Denies excessive sweating Hematologic/Lymphatic: Hematologic/Lymphatic: Denies easy bleeding Allergic/Immunologic: Allergic/Immunologic: Denies GI upset with certain foods Exam Narrative: Alert oriented. Appears stated age Const: General: comfortable and no acute distress HENMT: General nose exam: Normal nares present Eyes: Sclera: sclerae normal Neck: Neck: supple and no JVD Chest: Other: no reproducible chest wall pain to palpation Resp: Auscultation: clear to auscultation bilaterally Cardio: Rate: regular rate Rhythm: regular rhythm GI: Inspection: non-distended Auscultation: normal bowel sounds Skin: General skin exam: normal color Other: Right groin is free of hematoma ecchymosis or bruit Neuro: Cognition (Neuro): normal cognition Speech: normal speech Extrem: General: normal to inspection and no edema Psych: Mental Status: mental status grossly normal Objective Data Vital Signs Vital Signs: Vital Signs - 24 hr 07/22/21 12:00 07/22/21 14:00 07/22/21 16:30 Temperature 36.7 C 36.0 C L Pulse Rate 59 L 60 56 L Respiratory Rate 16 16 Blood Pressure 110/74 128/73 Pulse Oximetry 100 98 07/22/21 16:45 07/22/21 17:00 07/22/21 17:15 Temperature Pulse Rate 55 L 54 L 54 L Respiratory Rate 16 16 16 Blood Pressure 131/74 135/80 134/78 Pulse Oximetry 100 97 96 07/22/21 17:30 07/22/21 17:45 07/22/21 18:15 Temperature Pulse Rate 58 L 56 L 63 Respiratory Rate 16 16 Blood Pressure 124/77 133/88 Pulse Oximetry 100 100 07/22/21 18:30 07/22/21 19:22 07/22/21 20:00 Temperature 36.3 C L 36.3 C L Pulse Rate 58 L
--- NOTE | 2021-07-23 13:38 | PM.IMPN ---
Progress Note: A&P Assessment and Plan (1) Chest pain: Code(s): R07.9 - Chest pain, unspecified Status: Acute Assessment and Plan: Stress echocardiogram 07/15/2021 showed hypokinetic segments of the LV including the basal inferior segment and the basal inferoseptal segment with an EF of 70%. Status post cardiac catheterization on 07/22/2021 negative Consulted GI for further evaluation (2) Gastroesophageal reflux disease: Code(s): K21.9 - Gastro-esophageal reflux disease without esophagitis Status: Acute Assessment and Plan: An ongoing issue for the patient for which she has been taking omeprazole. She received an IV dose of pantoprazole and a GI cocktail in the emergency department with some improvement GI consultation Will add Reglan (3) Erosive esophagitis: Onset Date: 02/07/21 Code(s): K22.10 - Ulcer of esophagus without bleeding Status: Acute Assessment and Plan: Noted on EGD on 02/07/2021. Continue PPI. (4) Morbid obesity: Code(s): E66.01 - Morbid (severe) obesity due to excess calories Status: Acute Assessment and Plan: Patient reports a 70 pound weight gain in the past 1 year or so. She understands the importance of making lifestyle changes given this healthcare scare and she seems motivated. TSH on 05/26/2021 was within normal limits. (5) Anxiety and depression: Code(s): F41.9 - Anxiety disorder, unspecified; F32.9 - Major depressive disorder, single episode, unspecified Status: Acute Assessment and Plan: The patient has longstanding issues with depression and anxiety and seems to have had more stress relatively recently. She denies harmful thoughts. Would benefit from outpatient therapy for stress management. Continue bupropion. Additional Plan Will remove telemetry Subjective Date/time seen: 07/23/21 13:38 Interval history: Had an episode of vomiting this morning. Nausea has been ongoing as well. EGD was done and February 2021. Awaiting GI to see her. Gastric emptying test done in the past with a negative Review of Systems Review of Systems: All systems reviewed & are unremarkable except as noted in HPI and below (HPI) Exam Narrative: General: Well-developed female with morbid obesity, not in acute distress HEENT: PERRL, EOMI. Sclerae anicteric. Tacky mucous membranes. Oropharynx is crowded. Neck: Supple. No adenopathy, thyromegaly, or JVD. Respiratory: Respirations are even and nonlabored lungs are clear to auscultation bilaterally. Cardiovascular: Regular rate and rhythm with S1-S2. Gastrointestinal: Abdomen is soft, distended Skin: Warm and dry. No rash or lesions on limited exam. Extremities: No cyanosis, clubbing, or significant edema. Radial and pedal pulses intact. Neurological: Alert. Cranial nerves 2-12 are grossly intact. No gross focal deficits to casual conversation. Psychiatric: Pleasant and cooperative. Appropriate mood and flat affect. Objective Data Vital Signs Vital Signs: Vital Signs - 24 hr 07/22/21 14:00 07/22/21 16:30 07/22/21 16:45 Temperature 96.8 F L Pulse Rate 60 56 L 55 L Respiratory Rate 16 16 Blood Pressure 128/73 131/74 Pulse Oximetry 98 100 07/22/21 17:00 07/22/21 17:15 07/22/21 17:30 Temperature Pulse Rate 54 L 54 L 58 L Respiratory Rate 16 16 Blood Pressure 135/80 134/78 Pulse Oximetry 97 96 07/22/21 17:45 07/22/21 18:15 07/22/21 18:30 Temperature Pulse Rate 56 L 63 58 L Respiratory Rate 16 16 Blood Pressure 124/77 133/88 Pulse Oximetry 100 100 07/22/21 19:22 07/22/21 20:00 07/22/21 20:29 Temperature 97.4 F L 97.4 F L 97.4 F L Pulse Rate 66 63 68 Respiratory Rate 22 H 22 H 22 H Blood Pressure 102/60 102/60 105/59 L Pulse Oximetry 100 100 100 07/22/21 21:53 07/22/21 22:00 07/22/21 23:43 Temperature 97.6 F 96.7 F L Pulse Rate 77 61 58 L Respiratory Rate 20 20 Blood Pressure 110/64 116/64 Pulse Oximetry
--- NOTE | 2021-07-23 16:08 | WPDGICN ---
Assessment and Plan Assessment and plan (1) Gastroesophageal reflux disease: Code(s): K21.9 - Gastro-esophageal reflux disease without esophagitis Status: Acute Assessment and Plan: refractory to medical treatment and still affecting quality of life continue with high dose ppi twice daily, pecid will add baclofen tid to see if any benefit agree with reglan as needed if nausea will refer to see Minimally Invasive and Bariatric Surgery in [place] to discuss options of treatment- patient is frustrated (2) Abnormal stress test: Code(s): R94.39 - Abnormal result of other cardiovascular function study Status: Acute Assessment and Plan: normal cardiac cath (3) Morbid obesity: Code(s): E66.01 - Morbid (severe) obesity due to excess calories Status: Acute Assessment and Plan: definitely loosing weight will help (4) Chest pain: Code(s): R07.9 - Chest pain, unspecified Status: Acute (5) Erosive esophagitis: Onset Date: 02/07/21 Code(s): K22.10 - Ulcer of esophagus without bleeding Status: Acute Assessment and Plan: on medical treatment gerd measures (6) Hiatal hernia: Code(s): K44.9 - Diaphragmatic hernia without obstruction or gangrene Status: Acute GI Consult Note Consult date/time: 07/23/21 16:08 Reason for consult: refractory GERD HPI: Amarilis Yepez is a 41 year old female who is my patient clinic with more than a year of GERD symptoms. I performed second EGD 02/07/2021 that still showed moderate reflux esophagitis and 2 cm hiatal hernia. She still has similar problem despite using omeprazole twice daily, carafate and after increased dose of meds. She is having chest discomfort worse after lying down, sour taste in mouth and affecting her QOL. She had to leave work several times. This time she as admitted for chest pain after had abnormal stress test, cardiac cath was performed but was unrevealing. She has seen surgery here for possible Nilda but given her morbid obesity and smoking status- she quit smoking now- was told that probably Nilda surgery at this point is not ideal. Gastric emptying study was normal. Also had recent CT scan a/p (reviewed)- No acute intra-abdominal findings, mild sigmoid diverticulosis, small hiatal hernia. Review of Systems Constitutional: Constitutional: Denies chills Eyes: Eyes: Reports no additional eye complaints ENT: Reports Normal hearing present Cardiovascular: Cardiovascular: Reports chest pain Respiratory: Respiratory: Denies hemoptysis Gastrointestinal: Gastrointestinal: Reports heartburn Genitourinary: Genitourinary: Denies flank pain Musculoskeletal: Musculoskeletal: Denies back pain Integumentary/Breasts: Skin/Breast: Denies dry skin Neurologic: Denies headache(s) Psychiatric: Psychiatric: Reports no additional psychiatric complaints PMFSH Past Medical History Medical History Anxiety and depression Erosive esophagitis (02/07/21) Gastroesophageal reflux disease Hemorrhoids Herpes labialis without complication Morbid obesity Splenomegaly Surgical History Surgical History History of appendectomy History of History of foot surgery Shaving of bone spur. History of hemorrhoidectomy History of hysterectomy History of laparoscopic cholecystectomy History of renal stent History of tonsillectomy Family History Family History Father Hypertension Grandparent Cerebrovascular accident Family history of pancreatic cancer Diabetes mellitus Family history of pancreatic disease Unknown Diabetes mellitus Mother No problems noted. Sibling No problems noted. Social History Social History Social History: Surrogate
[2021-07-23] MEDS: METOCLOPRAMIDE HCL 5 MG TABLET PO ×2 (16:17→20:54)
--- NOTE | 2021-07-23 16:26 | PC.NURSE ---
On 07/23/21, the student, Julia AWAD [facility], provided care on this patient. I have reviewed all the work she has done.
[2021-07-23] MEDS: HYDROcodone/acetaminophen (*CRX) 5-325 MG TABLET 1 TAB PO (20:21)
[2021-07-23 20:42] LABS: Hematocrit 37.5 % (37.0-47.0); Hemoglobin 12.3 g/dL (12.0-15.0)
[2021-07-23] MEDS: BACLOFEN 5 MG TABLET PO (21:40)
[2021-07-24] VITALS (9 sets, daily range): BP systolic 102–124; BP diastolic 53–73; PULSE 55–68; RESP 16–20; TEMP 36.4–36.6; O2SAT 97–100
[2021-07-24] MEDS: BACLOFEN 5 MG TABLET PO (06:26)
[2021-07-24] MEDS: METOCLOPRAMIDE HCL 5 MG TABLET PO ×2 (06:26→12:00)
[2021-07-24] MEDS: PANTOPRAZOLE 40 MG TABLET PO (08:30)
[2021-07-24] MEDS: buPROPion HCL SR (12 HR) 150 MG TAB PO (08:30)
--- NOTE | 2021-07-24 09:33 | PM.PNCARD ---
Progress Note: A&P Assessment and Plan (1) Chest pain: Code(s): R07.9 - Chest pain, unspecified Status: Acute Assessment and Plan: Noncardiac. Cardiac catheterization showed no obstructive coronary disease. Discontinue event designer. Patient may transfer to medicine or be discharged home. No further workup needed. Will check a right groin arterial Doppler to make sure there is no issues with her catheterization site. The burning sensation in the thigh and may be related to a cutaneous nerve irritation from her catheterization. (2) Erosive esophagitis: Onset Date: 02/07/21 Code(s): K22.10 - Ulcer of esophagus without bleeding Status: Acute Assessment and Plan: pantoprazole 40 mg B.i.d.. (3) Abnormal stress test: Code(s): R94.39 - Abnormal result of other cardiovascular function study Status: Acute Assessment and Plan: False-positive (4) VAZQUEZ (dyspnea on exertion): Code(s): R06.00 - Dyspnea, unspecified Status: Acute Assessment and Plan: Likely deconditioning versus weight versus multifactorial. Dietary and lifestyle modification weight loss. (5) Depression with anxiety: Code(s): F41.8 - Other specified anxiety disorders Status: Acute Subjective Date/time seen: 07/24/21 09:33 Interval history: 41-year-old admitted for chest pain. Abnormal stress test as outpatient. Date of service 07/24/2021: She has some sensation the medial upper thigh area which is described as burning. It is intermittent. She denies any chest pain or shortness of breath Review of Systems Review of Systems: All systems reviewed & are unremarkable except as noted in HPI and below Constitutional: Constitutional: Denies excessive sweating, Denies headache(s) and Denies weakness Eyes: Eyes: Denies blurry vision ENT: Denies headache(s) and Denies neck pain Cardiovascular: Cardiovascular: Reports chest pain and Reports dyspnea on exertion Respiratory: Respiratory: Reports dyspnea on exertion Gastrointestinal: Gastrointestinal: Reports heartburn, Reports nausea and Reports vomiting Genitourinary: Genitourinary: Denies flank pain Musculoskeletal: Musculoskeletal: Denies neck pain and Denies numbness Integumentary/Breasts: Skin/Breast: Denies dry skin Neurologic: Denies behavioral changes, Denies headache(s), Denies numbness and Denies weakness Psychiatric: Psychiatric: Denies anxiety and Denies behavioral changes Endocrine: Endocrine: Denies excessive sweating Hematologic/Lymphatic: Hematologic/Lymphatic: Denies easy bleeding Allergic/Immunologic: Allergic/Immunologic: Denies GI upset with certain foods Exam Narrative: Alert oriented. Appears stated age Const: General: comfortable and no acute distress HENMT: General nose exam: Normal nares present Eyes: Sclera: sclerae normal Neck: Neck: supple and no JVD Chest: Other: no reproducible chest wall pain to palpation Resp: Auscultation: clear to auscultation bilaterally Cardio: Rate: regular rate Rhythm: regular rhythm GI: Inspection: non-distended Auscultation: normal bowel sounds Skin: General skin exam: normal color Other: Right groin is free of hematoma ecchymosis or bruit Neuro: Cognition (Neuro): normal cognition Speech: normal speech Extrem: General: normal to inspection and no edema Psych: Mental Status: mental status grossly normal Objective Data Vital Signs Vital Signs: Vital Signs - 24 hr 07/23/21 10:00 07/23/21 12:00 07/23/21 14:00 Temperature 36.7 C Pulse Rate 84 64 65 Respiratory Rate 16 Blood Pressure 144/82 H Pulse Oximetry 99 07/23/21 16:00 07/23/21 18:00 07/23/21 20:00 Temperature 37.0 C 36.3 C L Pulse Rate 63 74 62 Respiratory Rate 16 22 H Blood Pressure 144/86 H 111/72 Pulse Oximetry 96 99 07/23/21 20:45 07/23/21 22:00 07/23/21 23:12 Temperature 36.2 C L Pulse Rate 61 56 L Respiratory Rate
[2021-07-24] MEDS: ONDANSETRON INJ 4 MG/2 ML VIAL IV PUSH (11:35)
--- NOTE | 2021-07-24 13:25 | PM.DS ---
DS: Admitting Diagnosis Discharge Date 07/24/2021 Admitting Diagnosis Chest pain/abdominal pain DS: Discharge Diagnosis Discharge Diagnosis (1) Chest pain: Code(s): R07.9 - Chest pain, unspecified Status: Acute Assessment and Plan: Stress echocardiogram 07/15/2021 showed hypokinetic segments of the LV including the basal inferior segment and the basal inferoseptal segment with an EF of 70%. Status post cardiac catheterization on 07/22/2021 negative Consulted GI for further evaluation. She does have history of severe GERD and is undergoing evaluation for possible surgical like Niseens' fundoplication. She is being referred to minimally invasive and bariatric surgery team in [place] for this treatment. (2) Gastroesophageal reflux disease: Code(s): K21.9 - Gastro-esophageal reflux disease without esophagitis Status: Acute Assessment and Plan: An ongoing issue for the patient for which she has been taking omeprazole. She received an IV dose of pantoprazole and a GI cocktail in the emergency department with some improvement GI consultation discussed with him Added on Reglan Baclofen added to see if that will be beneficial for her symptoms (3) Erosive esophagitis: Onset Date: 02/07/21 Code(s): K22.10 - Ulcer of esophagus without bleeding Status: Acute Assessment and Plan: Noted on EGD on 02/07/2021. Continue PPI. (4) Morbid obesity: Code(s): E66.01 - Morbid (severe) obesity due to excess calories Status: Acute Assessment and Plan: Patient reports a 70 pound weight gain in the past 1 year or so. She understands the importance of making lifestyle changes given this healthcare scare and she seems motivated. TSH on 05/26/2021 was within normal limits. (5) Anxiety and depression: Code(s): F41.9 - Anxiety disorder, unspecified; F32.9 - Major depressive disorder, single episode, unspecified Status: Acute Assessment and Plan: The patient has longstanding issues with depression and anxiety and seems to have had more stress relatively recently. She denies harmful thoughts. Would benefit from outpatient therapy for stress management. Continue bupropion. (6) Right leg paresthesias: Code(s): R20.2 - Paresthesia of skin Status: Acute Assessment and Plan: On the site of groin from where the catheterization was done. Arterial Doppler ensure no pseudoaneurysm formation from the catheterization and came back negative. Likely due to nerve damage is from her catheterization DS: Summary Hospital Course Hospital Course: See above Time Spent with Patient Time attestation: Total time spent providing and/or coordinating discharge services: 45 minutes Exam Narrative: General: Well-developed female with morbid obesity, not in acute distress HEENT: PERRL, EOMI. Sclerae anicteric. Tacky mucous membranes. Oropharynx is crowded. Neck: Supple. No adenopathy, thyromegaly, or JVD. Respiratory: Respirations are even and nonlabored lungs are clear to auscultation bilaterally. Cardiovascular: Regular rate and rhythm with S1-S2. Gastrointestinal: Abdomen is soft, distended Skin: Warm and dry. No rash or lesions on limited exam. Extremities: No cyanosis, clubbing, or significant edema. Radial and pedal pulses intact. Neurological: Alert. Cranial nerves 2-12 are grossly intact. No gross focal deficits to casual conversation. Psychiatric: Pleasant and cooperative. Appropriate mood and flat affect. DS: Data Data Completed and Pending Labs on day of discharge: Labs from last 24 hours 07/23/21 20:26 Hgb 12.3 Hct 37.5 Procedures/Treatments: Cardiac Cath Procedure Note Date of procedure:: 07/22/21 Performing physician:: Yuriy Wheatley MD Indication:: symptoms of chest pain felt to be atypical of angina abnormal stress echo Brief clinical history:: this is a 41-year-old patient seen by 1 of my par
--- NOTE | 2021-07-24 14:36 | PC.NURSE ---
On 07/24/21, the student, [Chichi Chamberlain], provided care and completed [facility] documentation on this patient. I have reviewed the student's documentation and agree with the findings.
== END 2021-07-24 14:05 | disposition home or self-care (01) ==
LOC: ANHED 12:28 → ANHIMU 07-22 08:21
PROVIDERS: Emergency Medicine; Internal Medicine Cardiovascular Disease; Physician Assistant; Specialist; Admitting Provider Internal Medicine; Emergency Provider Emergency Medicine; PCP Family Medicine; Visit Provider Internal Medicine
PROC: 4A023N7 Measurement of Cardiac Sampling and Pressure, Left Heart, Percutaneous Approach (ICD-10-PCS; CPT 93452; principal; 2021-07-22 10:00)
DX: R07.9 Chest pain, unspecified (principal); K22.10 Ulcer of esophagus without bleeding; R06.00 Dyspnea, unspecified; F41.8 Other specified anxiety disorders; K21.9 Gastro-esophageal reflux disease without esophagitis; E66.01 Morbid (severe) obesity due to excess calories; K44.9 Diaphragmatic hernia without obstruction or gangrene; R10.31 Right lower quadrant pain; G89.18 Other acute postprocedural pain; T81.718A Complication of other artery following a procedure, not elsewhere classified, initial encounter; Z87.891 Personal history of nicotine dependence; Z68.42 Body mass index [BMI] 45.0-49.9, adult
CPT/HCPCS: 36415; 71045; 80048; 80053; 80061; 81001; 81025; 83690; 83735; 83880; 84484; 85014; 85018; 85025; 85610; 85730; 93005; 93458; 93926; 96360; 96361; 96374; 96375; 96376; 99285; A9270; C1760; C1887; C1894; C9113; G0269; G0378; G0379; J1644; J2250; J2270; J2405; J3010; J7030; J7040

== ENCOUNTER 2022-04-20 01:42 | Day surgery (SDC) | payer OTHER, SELFPAY ==
[2022-04-07 14:53] VITALS: BMI 42.7
--- NOTE | 2022-04-07 15:05 | PC.NURSE ---
Pt instructed not to drink magnesium citrate as part of colonoscopy prep. Pt verbalized understanding.
[2022-04-20 06:43] VITALS: BP 137/93; PULSE 68; RESP 16; TEMP 36.3; O2SAT 100
--- NOTE | 2022-04-20 07:01 | WPDANESEPPF ---
Anes - Initial Pre Proc Eval Procedure: Operation Date: 04/20/22 08:00 Proposed Procedures p Colonoscopy - Maurice Hernandez MD Date/Time: 04/20/22 07:01 Surgeon: Maurice Hernandez MD Pre Op Diagnosis: constipation Patient Data Age: 41 Gender: F Height: 1.63 m Weight: 112.9 kg Last Vital Signs Temp 36.3 C L 04/20/22 06:43 Pulse 68 04/20/22 06:43 Resp 16 04/20/22 06:43 BP 137/93 H 04/20/22 06:43 Pulse Ox 100 04/20/22 06:43 O2 Del Method Room Air 04/20/22 06:43 Allergies Allergy/AdvReac Type Severity Reaction Status Date / Time metronidazole Allergy Severe Nausea and Verified 04/20/22 06:43 Vomiting prochlorperazine Allergy Severe Nervousness Verified 04/20/22 06:43 cephalexin Allergy Intermediate Rash Verified 04/20/22 06:43 zolpidem Allergy Unknown Hallucinate Verified 04/20/22 06:43 Home Medications Medication Instructions Recorded Confirmed Type omeprazole 40 mg capsule,delayed 40 mg PO BID #60 caps 02/07/21 04/07/22 Rx release bupropion HCl 150 mg tablet,12 hr 150 mg PO BID #60 tabs 01/27/22 04/07/22 Rx sustained-release (Wellbutrin SR) escitalopram oxalate 10 mg tablet 10 mg PO DAILY 04/15/22 History (Lexapro) metoclopramide HCl 10 mg tablet 10 mg PO Q8H PRN nausea and 04/15/22 04/15/22 Rx (Reglan) vomiting #10 tabs Patient hx anesthesia problems: none Family hx anesthesia problems: none Results Review: All pre-operative results and documents have been reviewed as part of the pre-operative evaluation. [facility] Past Medical History Medical History Anxiety and depression BMI greater than 40 Erosive esophagitis (02/07/21) Gastroesophageal reflux disease Hemorrhoids Herpes labialis without complication Morbid obesity Splenomegaly Surgical History Surgical History History of appendectomy History of History of foot surgery Shaving of bone spur. History of hemorrhoidectomy History of hysterectomy History of laparoscopic cholecystectomy History of renal stent History of tonsillectomy Family History Family History Father Hypertension Grandparent Cerebrovascular accident Family history of pancreatic cancer Diabetes mellitus Family history of pancreatic disease Unknown Diabetes mellitus Mother No problems noted. Sibling No problems noted. Social History Social History Social History: Surrogate decision-maker: Alondra Rice, sister. CODE STATUS: Full code. Smoking packs per day: 1.5 Smoking cigarettes per day: 30.0 Years smoked: 15 Smoking pack-years: 22.50 Smoking status: Current every day smoker Tobacco type: cigarettes Second hand tobacco smoke exposure: No Additional smoking assessment comments: Patient quit smoking in fall 2020. Alcohol intake: current Drinks per week: 4 Alcohol use details: Drinks 5-6 shots a week. Substance use: current Substance use type: marijuana Last use: 07/19/21 Additional living arrangements comments: The patient lives in [place]. She has 5 children currently living with their father. Gender identity (if verbalized by the patient): Female Spiritual care concerns: No Anes - Eval Final PreProcedure Day of Procedure 04/20/22 07:01 Patient weight: morbidly obese Heart: regular rate and rhythm Lungs: clear to auscultation Airway: Mallampati scale class II Neurological: alert and oriented Last oral intake: >/= 8 hours ASA classification: III Emergent: no Anesthetic plan: proceed Anesthesia type and monitoring: general GIVS and standard monitoring Results Review: All pre-operative results and documents have been reviewed as part of the pre-operative evaluation. Informed Consent: The patien
[2022-04-20] MEDS: LACTATED RINGERS 1,000 ML 150 ML IV CONT (07:11)
--- NOTE | 2022-04-20 07:49 | WPDHPUPDATE1 ---
History and Physical Update Update Date/Time: 04/20/22 07:49 History and Physical has been reviewed, including an updated exam of the patient. There are NO changes in the patient's condition. Risks, benefits, and alternatives have been discussed and questions answered. Patient agrees to proceed with procedure.
[2022-04-20 08:13] VITALS: BP 131/57; PULSE 64; RESP 19; O2SAT 100
[2022-04-20 08:23] VITALS: BP 125/64; PULSE 67; RESP 19; O2SAT 98
[2022-04-20 08:33] VITALS: BP 173/110; PULSE 110; RESP 21; O2SAT 97
== END 2022-04-20 08:40 | disposition home or self-care (01) ==
PROVIDERS: PCP Family Medicine; Visit Provider Internal Medicine Gastroenterology
PROC: 0DJD8ZZ Inspection of Lower Intestinal Tract, Via Natural or Artificial Opening Endoscopic (ICD-10-PCS; CPT 45378; principal; 2022-04-20 08:00)
DX: K59.00 Constipation, unspecified (principal); K57.30 Diverticulosis of large intestine without perforation or abscess without bleeding; K64.8 Other hemorrhoids; K21.9 Gastro-esophageal reflux disease without esophagitis; F41.8 Other specified anxiety disorders; B00.9 Herpesviral infection, unspecified; F17.210 Nicotine dependence, cigarettes, uncomplicated; F12.90 Cannabis use, unspecified, uncomplicated; E66.01 Morbid (severe) obesity due to excess calories; Z68.41 Body mass index [BMI] 40.0-44.9, adult
CPT/HCPCS: 45378; 36415; 80053; 82306; 82607; 83540; 83550; 84443; 85025; 86038; 86140; 86430; J2704; J7120

== ENCOUNTER 2022-04-20 06:21 | Outpatient (CLI) | payer OTHER, SELFPAY ==
[2022-04-20 07:06] LABS: Basophils Percent Auto 0.5 % (0.2-1.2); Eosinophils Absolute Auto 0.1 K/mm3 (0-0.3); Eosinophils Percent Auto 1.7 % (0-4.4); Hematocrit 40.1 % (37.0-47.0); Hemoglobin 13.1 g/dL (12.0-15.0); Immature Granulocyte Absolute 0.02 K/mm3 (0.00-0.031); Immature Granulocyte Percent A 0.3 % (0-0.5); Lymphocytes Absolute Auto 2.01 K/mm3 (0.9-3.2); Lymphocytes Percent Auto 34.6 % (18.3-44.2); Mean Corpuscular HGB Conc 32.7 g/dl (32-36); Mean Corpuscular Hemoglobin 28.9 pg (26-34); Mean Corpuscular Volume 88.5 fl (80-100); Mean Platelet Volume 10.1 fl (7.4-10.4); Monocytes Absolute Auto 0.4 K/mm3 (0.1-0.6); Neutrophils Absolute Auto 3.3 K/mm3 (1.3-6.7); Neutrophils Percent Auto 56.9 % (45.5-73.1); Platelet Count Result 280 k/mm3 (150-375); Red Blood Count 4.53 M/mm3 (4.2-5.4); Red Cell Distribution Width 13.4 % (11.5-14.5); White Blood Count 5.8 K/mm3 (4.5-10.0)
[2022-04-20 07:28] LABS: Alanine Aminotransferase 22 U/L (6-35); Albumin Level 4.5 g/dL (3.5-5.1); Alkaline Phosphatase 90 U/L (38-126); Anion Gap 9 mmol/L (8-16); Aspartate Amino Transferase 27 U/L (14-36); Bilirubin,Total 0.5 mg/dL (0.2-1.3); Blood Urea Nitrogen 14 mg/dL (7-17); CRP 1.3 mg/dL (<1.0); Calcium 9.3 mg/dL (8.4-10.2); Carbon Dioxide 25 mmol/L (22-30); Chloride 101 mmol/L (98-107); Estimated Glomerular Filt Rate > 60; Glucose 96 mg/dL (65-110); Potassium 3.7 mmol/L (3.4-5.0); Sodium 135 mmol/L (137-145)
[2022-04-20 07:29] LABS: Rheumatoid Factor < 8.6 IU/ML (<12)
[2022-04-20 07:44] LABS: Vitamin D 25 Hydroxy 37.4 ng/mL
[2022-04-20 08:00] LABS: Iron 78 ug/dL (37-170)
[2022-04-20 08:18] LABS: Percent Iron Saturation 22 % (20-50)
== END 2022-04-20 06:22 | disposition home or self-care (01) ==
PROVIDERS: PCP Family Medicine; Visit Provider Nurse Practitioner Family
DX: L60.9 Nail disorder, unspecified (principal); R61 Generalized hyperhidrosis; F41.9 Anxiety disorder, unspecified; L65.9 Nonscarring hair loss, unspecified; R68.2 Dry mouth, unspecified; R11.2 Nausea with vomiting, unspecified; R53.1 Weakness; R53.83 Other fatigue; Z86.2 Personal history of diseases of the blood and blood-forming organs and certain disorders involving the immune mechanism
CPT/HCPCS: 36415; 80053; 82306; 82607; 83540; 83550; 84443; 85025; 86038; 86140; 86430

== ENCOUNTER → 2022-04-28 08:02 | Outpatient (CLI) | payer OTHER, SELFPAY ==
--- NOTE | ~2022-04-28 | US_ITS ---
EXAMINATION: US abdomen complete DATE: 04/28/2022 08:25 INDICATION: Abdominal pain, cholecystectomy TECHNIQUE: Multiple grayscale and Doppler ultrasound images of the abdomen were obtained. COMPARISON: CT, 07/14/2021 FINDINGS: Bowel gas obscures visualization of the pancreas. The visualized portions of the pancreas a re unremarkable. The liver is normal with normal echogenicity and echotexture. No surface nodularity. Normal hepatopetal flow in the main portal vein. The normal common bile duct measures 5 mm. There wa s no sonographic Taylor sign. The visualized portions of the aorta and inferior vena cava are normal. The right kidney measures 10.7 x 4.9 x 5.6 cm. The left kidney measures 11.9 x 5.2 x 5.2 cm. The kidn eys demonstrate normal parenchymal echogenicity. There is no hydronephrosis. The spleen is normal in appearance and measures 12.3 cm. IMPRESSION: 1. No sonographic correlate for the patient's symptoms. Reviewed, dictated and finalized at location D.
== END ==
PROVIDERS: PCP Nurse Practitioner Family; Visit Provider Nurse Practitioner Family
DX: R10.84 Generalized abdominal pain (principal)
CPT/HCPCS: 76700